=== PATIENT | female | born 1985 | race Caucasian/White ===

== ENCOUNTER 2020-08-07 17:40 | Emergency (ER) | payer OTHER, SELFPAY ==
[2020-08-07 17:43] VITALS: BP 180/105; PULSE 96; RESP 18; TEMP 36.8; O2SAT 100
[2020-08-07 17:55] LABS: Basophils Percent Auto 0.4 % (0.2-1.2); Eosinophils Percent Auto 0.2 % (0-4.4); Hematocrit 39.2 % (37.0-47.0); Immature Granulocyte Absolute 0.01 K/mm3 (0.00-0.031); Immature Granulocyte Percent A 0.2 % (0-0.5); Lymphocytes Absolute Auto 1.95 K/mm3 (0.9-3.2); Lymphocytes Percent Auto 34.2 % (18.3-44.2); Mean Corpuscular HGB Conc 33.2 g/dl (32-36); Mean Corpuscular Hemoglobin 28.6 pg (26-34); Mean Corpuscular Volume 86.2 fl (80-100); Mean Platelet Volume 9.9 fl (7.4-10.4); Monocytes Absolute Auto 0.4 K/mm3 (0.1-0.6); Monocytes Percent Auto 7.2 % (2.6-8.5); Neutrophils Absolute Auto 3.3 K/mm3 (1.3-6.7); Neutrophils Percent Auto 57.8 % (45.5-73.1); Platelet Count Result 216 k/mm3 (150-375); Red Blood Count 4.55 M/mm3 (4.2-5.4); Red Cell Distribution Width 12.8 % (11.5-14.5); White Blood Count 5.7 K/mm3 (4.5-10.0)
[2020-08-07 18:04] LABS: Alanine Aminotransferase 24 U/L (4-35); Albumin Level 4.1 g/dL (3.5-5.1); Alkaline Phosphatase 63 U/L (38-126); Anion Gap 6 mmol/L (8-16); Aspartate Amino Transferase 26 U/L (14-36); Bilirubin,Total 0.3 mg/dL (0.2-1.3); Blood Urea Nitrogen 11 mg/dL (7-17); Calcium 9.2 mg/dL (8.4-10.2); Carbon Dioxide 26 mmol/L (22-30); Chloride 104 mmol/L (98-107); Estimated CRCL calculation 60 ml/min; Estimated Glomerular Filt Rate 52; Glucose 102 mg/dL (65-105); Lipase 89 U/L (23-300); Potassium 3.8 mmol/L (3.4-5.0); Sodium 136 mmol/L (137-145)
[2020-08-07 18:06] LABS: Add Urine Microscopic? NO; Appearance Urine Clear (Clear); Bilirubin Urine Negative (Negative); Blood Urine Negative (Negative); Color Urine Yellow (Yellow); Glucose Urine UA Negative (Negative); Ketones Urine Negative (Negative); Leukocyte Esterase Ur Negative LEU/UL (Negative); Nitrate Urine Negative (Negative); Protein Urine Negative (Negative); Specific Grav Ur 1.013 (1.001-1.035); Urobilinogen Urine Negative mg/dL (<2.0)
[2020-08-07] MEDS: SODIUM CHLORIDE 0.9% IV 1,000 ML 999 ML (18:34)
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
[2020-08-07] MEDS: ONDANSETRON INJ 4 MG/2 ML VIAL IV PUSH (18:40)
[2020-08-07 18:59] LABS: Lipase 87 U/L (23-300)
[2020-08-07 20:22] VITALS: BP 148/78; PULSE 78; RESP 22; O2SAT 99
== END 2020-08-07 20:23 | disposition home or self-care (01) ==
PROVIDERS: Emergency Medicine; Emergency Provider Nurse Practitioner; PCP Family Medicine
DX: S13.4XXA Sprain of ligaments of cervical spine, initial encounter (principal); V49.50XA Passenger injured in collision with unspecified motor vehicles in traffic accident, initial encounter
CPT/HCPCS: 36415; 80053; 81003; 81025; 83690; 85025; 96361; 96374; 99284; J2405; J7030

== ENCOUNTER 2020-12-17 15:08 | Emergency (ER) | payer OTHER, SELFPAY ==
--- NOTE | ~2020-12-17 | CT_ITS ---
EXAMINATION: CT abdomen pelvis wo con DATE: 12/17/2020 17:47 INDICATION: Nausea, vomiting, and diarrhea TECHNIQUE: Computed tomography (CT) of the abdomen and pelvic was performed without intravenous contr ast. The dose-length product (DLP) was 914.22 mGy-cm. Automated exposure control and iterative recons truction technique were employed. COMPARISON: None FINDINGS: Minimal dependent atelectasis is present in the lung bases. The heart size is normal. There is a small sliding hiatal hernia. Changes of gastric sleeve surgery are noted. The gallbladder is mane rgically absent. The liver, spleen, pancreas, and adrenal glands are normal. There is a 1 mm nonobstr ucting stone of the right kidney. The left kidney is unremarkable. No pathologically enlarged abdomin al or pelvic lymph nodes are identified. There is no free intraperitoneal gas or evidence of bowel ob struction. The appendix is normal. A trace amount of free fluid in the pelvis is likely physiologic. IMPRESSION: 1. No CT correlate for the patient's symptoms. Reviewed, dictated and finalized at location A.
[2020-12-17 15:12] VITALS: BP 154/117; PULSE 100; RESP 18; TEMP 36.8; O2SAT 100
--- NOTE | 2020-12-17 15:23 | ED.NAVMDI ---
HPI - Nausea/Vomiting/Diarrhea General Chief complaint: Nausea/Vomiting/Diarrhea Stated complaint: nausea/vomiting Time Seen by Provider: 12/17/20 15:10 Source: RN notes reviewed History of Present Illness HPI Narrative: Patient presents emergency room from home for nausea vomiting diarrhea. Patient states the symptoms began 2 days ago she states numerous episodes of nausea vomiting as well as diarrhea notes abdominal pain in the upper abdomen bilaterally states has been able to keep anything down since yesterday states she did have a fever up to 101 ?F yesterday and she denies any chest pain shortness of breath coughing or any other symptoms patient states she is followed by nephrology secondary to acute renal failure she suffered from allergic reaction [address] Tenorio states baseline creatinine is around 1.4 Related Data Home Medications Medication Instructions Recorded Confirmed ipratropium-albuterol ml INHALATION 08/07/20 omeprazole 08/07/20 oxycodone 08/07/20 trazodone 08/07/20 Allergies Allergy/AdvReac Type Severity Reaction Status Date / Time naproxen [From Aleve] Allergy Other Verified 08/07/20 17:46 NSAIDS (Non-Steroidal Allergy Other Verified 08/07/20 17:46 Anti-Inflamma PEACHES Allergy Mild HIVES Uncoded 09/12/05 13:20 Review of Systems Review of Systems: Gen.: Reports fever yesterday ENT: Denies congestion Respiratory: Denies shortness of breath or cough CV: Denies chest pain or palpitations GI: See HPI denies burning, urgency, frequency or hematuria Musculoskeletal: Denies back pain or muscle pain Neuro: Denies numbness, tingling, weakness or focal weakness Skin: Denies rash Except as documented, all other systems reviewed and negative PENDING SALE TO [facility] Past Medical History Medical History (Updated 12/17/20 @ 19:01 by Dewey Oden DO) Chronic renal insufficiency Family History Family History Grandparent Hypertension Cerebrovascular accident Father Family history of diabetes mellitus in first degree relative Other Family history of coronary artery disease Family history of lung cancer Social History Social History Smoking status: Never smoker Alcohol intake: never Substance use: never Gender identity (if verbalized by the patient): Female Exam Narrative: APPEARANCE: No acute distress, nontoxic, resting in bed EYES: EOMI HEENT: Normocephalic, atraumatic, OMM RESPIRATORY: No respiratory distress Clear to auscultation bilaterally with no rhonchi wheezing or rales. CARDIOVASCULAR: Regular rate and rhythm without murmurs rubs or gallops. ABDOMINAL: Soft, n nondistended tender palpation epigastric, right upper quadrant left upper quadrant no tenderness right lower quadrant left lower quadrant no rebound or guarding MUSCULOSKELETAl: Moves all extremities. No clubbing, cyanosis or edema. NEURO: Awake and alert. Following commands, speech normal, no focal deficits SKIN:: Warm, dry. No rashes lesions or abrasions PSYCHIATRIC: Normal affect/mood, Course Course Emergency Course: Patient states that they are feeling much better at this time. States abdominal pain has improved. Repeat abdominal exam shows the patient's abdomen to be soft with no surgical abdomen present. Discussed with patient results of workup and diagnosis. Discussed need for follow-up with primary care physician, reasons to return to the emergency department in proper use of medication. Patient understands and agrees to current treatment plan Vital Signs Vital signs: Vital Signs Temperature 98.2 F 12/17/20 15:12 Pulse Rate 100 12/17/20 15:12 Respiratory Rate 18 12/17/20 15:12 Blood Pressure 154/117 H 12/17/20 15:12 Pulse Oximetry 100 12/17/20 15:12 Temperature 98.2 F 12/17/20 15:12 Pulse Rate 100 12/17/20 15:12 Respiratory Rate 18 12/17/20 15:12 Blood Pressure
[2020-12-17] MEDS: SODIUM CHLORIDE 0.9% IV 1,000 ML 999 ML IV CONT ×2 (16:37→18:39)
[2020-12-17] MEDS: ONDANSETRON INJ 4 MG/2 ML VIAL IV PUSH (16:37)
[2020-12-17 16:43] LABS: Eosinophils Absolute Auto 0.1 K/mm3 (0-0.3); Eosinophils Percent Auto 3.7 % (0-4.4); Hematocrit 40.6 % (37.0-47.0); Hemoglobin 13.9 g/dL (12.0-15.0); Immature Granulocyte Absolute 0.01 K/mm3 (0.00-0.031); Immature Granulocyte Percent A 0.3 % (0-0.5); Lymphocytes Absolute Auto 0.95 K/mm3 (0.9-3.2); Lymphocytes Percent Auto 29.2 % (18.3-44.2); Mean Corpuscular HGB Conc 34.2 g/dl (32-36); Mean Corpuscular Hemoglobin 28.9 pg (26-34); Mean Corpuscular Volume 84.4 fl (80-100); Mean Platelet Volume 9.9 fl (7.4-10.4); Monocytes Absolute Auto 0.4 K/mm3 (0.1-0.6); Neutrophils Absolute Auto 1.8 K/mm3 (1.3-6.7); Neutrophils Percent Auto 54.8 % (45.5-73.1); Platelet Count Result 214 k/mm3 (150-375); Red Blood Count 4.81 M/mm3 (4.2-5.4); White Blood Count 3.3 K/mm3 (4.5-10.0)
[2020-12-17 16:45] VITALS: BP 135/92; PULSE 86; RESP 18; TEMP 37.2; O2SAT 100
[2020-12-17 16:54] LABS: Alanine Aminotransferase 42 U/L (4-35); Albumin Level 4.3 g/dL (3.5-5.1); Alkaline Phosphatase 71 U/L (38-126); Anion Gap 9 mmol/L (8-16); Aspartate Amino Transferase 44 U/L (14-36); Bilirubin,Total 0.5 mg/dL (0.2-1.3); Blood Urea Nitrogen 12 mg/dL (7-17); Carbon Dioxide 26 mmol/L (22-30); Chloride 102 mmol/L (98-107); Estimated CRCL calculation 71 ml/min; Estimated Glomerular Filt Rate > 60; Glucose 92 mg/dL (65-110); Lipase 78 U/L (23-300); Potassium 3.4 mmol/L (3.4-5.0); Sodium 137 mmol/L (137-145)
[2020-12-17 17:45] VITALS: BP 142/94; PULSE 88; RESP 18; O2SAT 99
[2020-12-17 18:45] VITALS: BP 136/94; PULSE 82; RESP 16; O2SAT 100
[2020-12-17 18:47] LABS: Add Urine Microscopic? NO; Appearance Urine Clear (Clear); Bilirubin Urine Negative (Negative); Blood Urine Negative (Negative); Color Urine Yellow (Yellow); Glucose Urine UA Negative (Negative); Ketones Urine Negative (Negative); Leukocyte Esterase Ur Negative LEU/UL (Negative); Nitrate Urine Negative (Negative); Protein Urine Negative (Negative); Specific Grav Ur 1.014 (1.001-1.035); Urobilinogen Urine Negative mg/dL (<2.0)
[2020-12-17 19:45] VITALS: BP 136/94; PULSE 82; RESP 18; O2SAT 100
== END 2020-12-17 19:45 | disposition home or self-care (01) ==
PROVIDERS: Emergency Provider Emergency Medicine; PCP Family Medicine
DX: R11.2 Nausea with vomiting, unspecified (principal); R10.9 Unspecified abdominal pain; N18.9 Chronic kidney disease, unspecified
CPT/HCPCS: 36415; 74176; 80053; 81003; 83690; 85025; 96361; 96374; 96375; 99284; J0131; J2405; J7030

== ENCOUNTER 2020-12-19 16:00 | Emergency (ER) | payer OTHER, SELFPAY ==
--- NOTE | ~2020-12-19 | XR_ITS ---
EXAMINATION: XR ankle RT min 3V INDICATION: Right ankle pain TECHNIQUE: Four views of the right ankle are obtained. COMPARISON: 08/21/2006 FINDINGS: Bone alignment is normal. There is no fracture. The ankle mortise is intact. There is mild soft tissue swelling. IMPRESSION: 1. Ankle soft tissue swelling without acute osseous abnormality. Reviewed, dictated and finalized at location A.
[2020-12-19 16:10] VITALS: BP 145/104; PULSE 91; RESP 20; TEMP 36.8; O2SAT 100
--- NOTE | 2020-12-19 16:21 | PC.NURSE ---
PT DECLINED ICE FOR COMFORT AND WHEELCHAIR TO RADIOLOGY
--- NOTE | 2020-12-19 16:55 | ED.LOWEXIN ---
HPI - Extremity Injury (Lower) General Chief Complaint: Extremity Injury, Lower Stated Complaint: Right ankle injury Time Seen by Provider: 12/19/20 16:42 Source: patient and RN notes reviewed Mode of arrival: ambulatory Limitations: no limitations History of Present Illness HPI Narrative: Patient presents today complaining of a right ankle injury. She was sitting on her lower leg, it fell asleep, she got up off the couch to go to the restroom and rolled her ankle yesterday. She was not able to walk on it yesterday, but has been able to bear weight today. She currently rates her ankle pain 4/10 and has tried no medication for symptoms prior to arrival. She has been elevating. 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 MD complaint: ankle injury Related Data Home Medications Medication Instructions Recorded Confirmed omeprazole 20 mg PO DAILY 08/07/20 trazodone 100 mg PO DAILY 08/07/20 albuterol sulfate [Ventolin HFA] See Rx Instructions .ROUTE .COMPLEX 12/19/20 12/19/20 ipratropium-albuterol See Rx Instructions .ROUTE .COMPLEX 12/19/20 12/19/20 ondansetron HCl 4 mg PO Q4-8H PRN 12/19/20 12/19/20 Allergies Allergy/AdvReac Type Severity Reaction Status Date / Time naproxen [From Aleve] Allergy Other Verified 12/19/20 16:28 NSAIDS (Non-Steroidal Allergy Other Verified 12/19/20 16:28 Anti-Inflamma PEACHES Allergy Mild HIVES Uncoded 09/12/05 13:20 Review of Systems Review of Systems: CONSTITUTIONAL: Denies body aches, fever, chills, or sweats. EYES: Denies visual changes, redness, or discharge. ENT: Denies rhinorrhea, congestion, sore throat, or otalgia. CARDIOVASCULAR: Denies chest pain, palpitations, or edema. RESPIRATORY: Denies cough or dyspnea. GASTROINTESTINAL: Denies abdominal pain, nausea, vomiting, or diarrhea. GENITOURINARY: Denies dysuria or hematuria. SKIN: Denies rash, itching, or wounds. MUSCULOSKELETAL: Denies back pain, or myalgia. + Right ankle injury NEUROLOGIC: Denies headache, numbness, tingling, or weakness. PSYCH: Denies depression or anxiety. [facility] Past Medical History Medical History Chronic renal insufficiency Family History Family History Grandparent Hypertension Cerebrovascular accident Father Family history of diabetes mellitus in first degree relative Other Family history of coronary artery disease Family history of lung cancer Social History Social History Smoking status: Never smoker Alcohol intake: never Substance use: never Gender identity (if verbalized by the patient): Female Comments At time of signature, I have reviewed and agree with nursing past medical, surgical, social and family history unless otherwise noted. Please see nursing chart for further information. There is no relevant family history pertinent to the presenting complaint Exam Narrative: GENERAL: Well-appearing, well-nourished, and in no acute distress. HEAD: Normocephalic, atraumatic. EYES: EOMI. No redness or drainage. Conjunctivae normal. ENT: Mucous membranes pink and moist. NECK: Normal AROM. CHEST: No respiratory distress. EXTREMITIES: Right ankle: Ecchymosis, mild to moderate edema to the lateral malleolus with tenderness to palpation. Distal sensation intact capillary refill normal. Pedal pulse normal. Full range of motion of the ankle with increased pain. SKIN: Warm, dry, no rash. Capillary refill normal. Normal skin turgor. NEURO: No focal deficits. Alert and oriented x3. Gait steady. PSYCH: Normal affect. No signs of depression or anxiety. Course Vital Signs Vital signs: Vital Signs Temperature 98.2 F 12/19/20 16:10 Pulse Rate 91 12/19/20 16:10 Respiratory Rate 20 12/19/20 16:10 Blood Pressure 145/104 H 12/19/20 16:10 Pulse Oximetry 100 12/19/20 16:10
[2020-12-19 16:59] VITALS: BP 145/104; PULSE 91; RESP 20; TEMP 36.8; O2SAT 100
== END 2020-12-19 17:05 | disposition home or self-care (01) ==
PROVIDERS: Emergency Provider Nurse Practitioner; PCP Family Medicine
DX: S93.401A Sprain of unspecified ligament of right ankle, initial encounter (principal); X50.9XXA Other and unspecified overexertion or strenuous movements or postures, initial encounter; I12.9 Hypertensive chronic kidney disease with stage 1 through stage 4 chronic kidney disease, or unspecified chronic kidney disease; N18.9 Chronic kidney disease, unspecified; E78.00 Pure hypercholesterolemia, unspecified; J45.909 Unspecified asthma, uncomplicated; K21.9 Gastro-esophageal reflux disease without esophagitis; D64.9 Anemia, unspecified; E28.2 Polycystic ovarian syndrome
CPT/HCPCS: 73610; 99213; G0463

== ENCOUNTER 2023-03-11 10:25 | Emergency (ER) | payer BC, SELFPAY ==
--- NOTE | ~2023-03-11 | XR_ITS ---
XR ankle LT min 3V DATE: 03/11/2023 13:07 INDICATION: Left ankle pain, no injury. TECHNIQUE: 4 views COMPARISON: None FINDINGS: No fracture or dislocation of the ankle or disruption of the ankle mortise. No periosteal r eaction or bone destruction. IMPRESSION: Negative Reviewed, dictated and finalized at location A. ORATE RECYCLING MANAGER IMPRESSION: Negative
--- NOTE | ~2023-03-11 | XR_ITS ---
XR toe 1st LT min 2V DATE: 03/11/2023 11:32 INDICATION: Discolored toe upon waking. No known injury. TECHNIQUE: 3 views COMPARISON: None FINDINGS: Hallux valgus and bunion deformity. No fracture, dislocation, periosteal reaction or bone destruction is evident. Joint spaces are preser jordan. No erosive change. IMPRESSION: Hallux valgus and bunion deformity Reviewed, dictated and finalized at location A. [employer]ONICS DETAIL DRAFTSPERSON
[2023-03-11 10:27] VITALS: BP 160/100; PULSE 85; RESP 16; TEMP 36.6; O2SAT 100
[2023-03-11 11:37] LABS: Basophils Percent Auto 0.6 % (0.2-1.2); Eosinophils Absolute Auto 0.3 K/mm3 (0-0.3); Eosinophils Percent Auto 6.9 % (0-4.4); Hemoglobin 13.2 g/dL (12.0-15.0); Immature Granulocyte Absolute 0.01 K/mm3 (0.00-0.031); Immature Granulocyte Percent A 0.2 % (0-0.5); Lymphocytes Absolute Auto 1.64 K/mm3 (0.9-3.2); Lymphocytes Percent Auto 35.4 % (18.3-44.2); Mean Corpuscular HGB Conc 32.2 g/dl (32-36); Mean Corpuscular Hemoglobin 27.6 pg (26-34); Mean Corpuscular Volume 85.6 fl (80-100); Monocytes Absolute Auto 0.3 K/mm3 (0.1-0.6); Monocytes Percent Auto 7.3 % (2.6-8.5); Neutrophils Absolute Auto 2.3 K/mm3 (1.3-6.7); Neutrophils Percent Auto 49.6 % (45.5-73.1); Platelet Count Result 276 k/mm3 (150-375); Red Blood Count 4.79 M/mm3 (4.2-5.4); Red Cell Distribution Width 12.9 % (11.5-14.5); White Blood Count 4.6 K/mm3 (4.5-10.0)
[2023-03-11 11:40] LABS: INR 0.9; Prothrombin Time 12.6 Seconds (11.1-14.7)
[2023-03-11 11:41] LABS: Alanine Aminotransferase 23 U/L (6-35); Albumin Level 3.8 g/dL (3.5-5.1); Alkaline Phosphatase 64 U/L (38-126); Anion Gap 6 mmol/L (8-16); Aspartate Amino Transferase 20 U/L (14-36); Bilirubin,Total 0.5 mg/dL (0.2-1.3); Blood Urea Nitrogen 11 mg/dL (7-17); Calcium 8.9 mg/dL (8.4-10.2); Carbon Dioxide 26 mmol/L (22-30); Chloride 106 mmol/L (98-107); Estimated CRCL calculation 68 ml/min; Estimated Glomerular Filt Rate > 60; Glucose 88 mg/dL (65-110); Partial Thromboplastin Time 30.3 SECONDS (22.3-36.8); Potassium 3.8 mmol/L (3.4-5.0); Sodium 138 mmol/L (137-145)
--- NOTE | 2023-03-11 12:18 | ED.GENADULT ---
HPI - General Adult General Chief complaint: Extremity Problem,Nontraumatic Stated complaint: discolored toe, ankle pain Time Seen by Provider: 03/11/23 12:17 Source: patient and family Mode of arrival: ambulatory Limitations: no limitations History of Present Illness HPI narrative: 37 years old white female came to the emergency room by private car complaining nontraumatic left ankle pain it started 1 week ago. Also over the last 2 days patient noticed red bluish discoloration, spots at the left big toe. She denies any trauma, fever, chills, nausea, vomiting. History of hyperlipidemia. And flatfoot Related Data Home Medications Medication Instructions Recorded Confirmed albuterol sulfate 90 mcg/actuation 2 puff inhalation Q4-6H PRN 12/19/20 08/24/22 aerosol inhaler (Ventolin HFA) Shortness Of Breath Or Wheezing montelukast 10 mg tablet 10 mg PO QPM 08/24/22 08/24/22 sertraline 50 mg tablet 50 mg PO DAILY 08/24/22 08/24/22 Allergies Allergy/AdvReac Type Severity Reaction Status Date / Time ibuprofen Allergy Severe Other Verified 08/24/22 18:34 naproxen [From Aleve] Allergy Severe Other Verified 08/24/22 18:33 NSAIDS (Non-Steroidal Allergy Severe Other Verified 08/24/22 18:33 Anti-Inflamma peach Allergy Mild Hives Verified 08/24/22 18:33 Review of Systems Review of Systems: All systems reviewed & are unremarkable except as noted in HPI and below PMFSH Past Medical History Medical History Chronic renal insufficiency Family History Family History Grandparent Hypertension Cerebrovascular accident Father Family history of diabetes mellitus in first degree relative Other Family history of coronary artery disease Family history of lung cancer Social History Social History Smoking status: Never smoker Alcohol intake: never Substance use: never Living arrangements: with family Gender identity (if verbalized by the patient): Female Exam Narrative: General appearance: Well-developed, well-nourished Skin: Left big toe examination showed spots of reddish bluish discoloration at the plantar side and the medial side. Slightly tender to touch. No erythema, no warmth, no swelling, no deformity Head: Normocephalic, nontraumatic Eyes: Clear conjunctiva ENT: Oropharynx normal, ears normal, nose normal Neck: Supple, nontender Chest and respiratory: Airway patent, no respiratory distress, no accessory muscle use Heart: Regular rate/rhythm Abdomen: Soft, nontender, no organomegaly, quiet bowel sounds Vascular: Normal peripheral pulses, normal capillary refill. Musculoskeletal: Left ankle showed no tenderness, no deformity, no bruises, no swelling. Good range of motion Neurologic: Alert and oriented ?3, DREDGE CAPTAIN is normal as tested, no gross motor deficit Course Consultations Consultation #1: Dr. Jimenez/vascular surgeon at [facility], requested to transfer the patient immediately to the ED Date: 03/11/23 Time: 15:43 Vital Signs Vital signs: Vital Signs Temperature 36.6 C 03/11/23 10:27 Pulse Rate 85 03/11/23 10:27 Respiratory Rate 16 03/11/23 10:27 Blood Pressure 160/100 H 03/11/23 10:27 Pulse Oximetry 100 03/11/23 10:27 Oxygen Delivery Room Air 03/11/23 10:27 Temperature 36.6 C 03/11/23 10:27 Pulse Rate 85 03/11/23 10:27 Respiratory Rate 16 03/11/23 10:27 Blood Pressure 160/100 H 03/11/23 10:27 Pulse Oximetry 100 03/11/23 10:27 Oxygen Delivery Room Air 03/11/23 10:27 Medical Decision Making MDM
[2023-03-11 13:29] LABS: CRP < 0.5 mg/dL (<1.0)
[2023-03-11 14:44] LABS: Erythrocyte Sedimentation Rate 12 mm/hr (0-20)
[2023-03-11 15:25] VITALS: BP 148/99; PULSE 81; RESP 17; O2SAT 100
[2023-03-11] MEDS: CLOPIDOGREL BISULFATE 300 MG TABLET PO (16:10)
[2023-03-11 17:17] VITALS: BP 154/108; PULSE 89; RESP 19; O2SAT 100
--- NOTE | 2023-03-11 17:26 | PC.NURSE ---
called [phone] and spoke to AMRSHAL Peralta to give nurse to nurse report. all questions answered. pt chose to go to [facility] via private car but s transportation was offered.
== END 2023-03-11 17:27 | disposition short-term general hospital (02) ==
PROVIDERS: General Practice; Emergency Provider Emergency Medicine; PCP Nurse Practitioner Family
DX: I75.022 Atheroembolism of left lower extremity (principal); N18.9 Chronic kidney disease, unspecified
CPT/HCPCS: 36415; 73610; 73660; 80053; 85025; 85610; 85652; 85730; 86140; 99283; A9270

== ENCOUNTER 2025-02-22 19:58 | Observation (INO) | payer OTHER, SELFPAY ==
--- NOTE | ~2025-02-22 | CT_ITS ---
EXAMINATION: CTA chest abdomen pelvis DATE: 02/22/2025 23:51 INDICATION: Left abdominal pain. Back pain. TECHNIQUE: Computed tomographic angiography (CTA) of the chest, abdomen, and pelvis was performed with 100 mL Omnipaque-350 intravenous contrast. Automated exposure control and iterative reconstruction technique were employed. The dose- length product was 1039.70 mGy-cm. Maximum intensity projection 3D- reconstructions of the aorta and other arteries were constructed by the technologist on a separate workstation. COMPARISON: CT abdomen and pelvis 12/17/2020 FINDINGS: CHEST CTA: The lungs demonstrate minimal atelectasis. No pleural effusion. The heart size is normal. No pericardial effusion. There is no pulmonary embolus. Thoracic aorta is normal. There are changes of gastric sleeve procedure. There is a small sliding hiatal hernia. There is mild thoracic spondylosis. ABDOMEN AND PELVIS CTA: The liver, spleen, pancreas, and adrenal glands are normal. There are changes of cholecystectomy. There is mild atrophy of the kidneys. There is a 3 mm stone in right kidney. There is a ring-shaped device in the vagina. The appendix is normal. There are no dilated loops of bowel. There is no significant stenosis of celiac axis, superior mesenteric artery, the renal arteries, or inferior mesenteric artery. There are no pathologically enlarged lymph nodes. There is no ascites. There is mild lumbar spondylosis. IMPRESSION: 1. No significant arterial occlusive disease. 2. Small sliding hiatal hernia. Reviewed, dictated and finalized at location E. [facility]
[2025-02-22 20:00] VITALS: BP 155/95; PULSE 112; RESP 15; TEMP 36.6; O2SAT 99
[2025-02-22 20:07] VITALS: BP 141/96; PULSE 108; RESP 16; O2SAT 98
[2025-02-22 20:48] LABS: BEDSIDEPREGUCG Negative (Negative)
--- OUTSIDE RECORDS SUMMARY | 2025-02-22 20:50 | XMS_ITS | Encounter Summary ---
Author Organization [facility] Address [address] [place] [address] Care Team Providers Care Vacuum Evaporation Operator Name Role Phone Miguel Pagan MD Primary Care Prov ider Blanca Martini RN Unavailable Unavailable Encounter Details Date Type Department Care Team (Late st Contact Info) Description 10/04/2024 [employer] Message Enc [facility] Family Medicine - [address], [address] [place] [address] [phone] Miguel Pagan MD [address] [place] [address], [address] [address] Medication Social History Tobacco Use Types Packs/Day Years Used Date Smoking Tobacco: Never Passive Smoke Exposure: Past Smokeless Tobacco: Never Alcohol Use Standard Drinks/Week Comments Not Currently 0 (1 standard drink = 0.6 oz pur e alcohol) socially AUDIT-C Answer Date Recorded Frequency of Alcohol Consumption Never 03/30/2018 Average Number of Drinks Not on file 019 Frequency of Binge Drinking Not on file 03/20 PHQ-2 Answer Date Recorded Patient Health Questionnaire-2 Score 0 08/29/2024 Education Answer Date Recorded What is the highest level of school you have completed or the highest degree you have received? 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 Answer Date of Assessment Author Status No 08/05/2018 11:59 AM CDT Acti ve * Do you have serious difficulty walking or climbing stairs? Answer Date of Assessment Author Status No 08/05/2018 11:59 AM CDT Rommel Ferreira LPN Active * Do you have difficulty dressing or bathing? Answer Date of Assessment Author Status No 08/05/2018 11:59 AM CDT Rommel Ferreira LPN Active * Because of a physical, mental, or emotional condition, do you have difficulty doing errands alone such as visiting a doctor's office or shopping? Answer Date of Assessment Author Status No 08/05/2018 11:59 AM CDT Rommel Ferreira LPN Active documented as of this encounter Mental Status * Because of a physical, mental, or emotional condition, do you have serious difficulty concentrating, remembering, or making decisions? Answer Entry Date Author Status No 08/05/2018 11:59 AM CDRommel Mooney LPN Active documented in this encounter Plan of Treatment Upcoming Encounters Date Type Department Care Team (Late st Contact Info) Description 04/02/2025 12:00 PM HOME AGENT Office Visit [facility] Family Medicine - [place] [id number] [facility], [address] [place] [address] Bartolo Miguel MARIE MD [address] [facility], [address] [id number] documented as of this encounter Visit Diagnoses Diagnosis Class 2 obesity due to excess calories with body mass index (BMI) of 38.0 to 38.9 in adult, unspecified whether serious comorbidity present- Primary documented in this encounter Additional Health Concerns Assessment Noted Time PHQ-9 Depression Total Score: 10 025 9:51 AM HOME AGENT documented as of this encounter Care Teams Vacuum Evaporation Operator Relationship Specialty Start Date End Date Bartolo VII, Miguel Mayer MD [address] [place], [place] [id number] PCP - General FAMILY PRACTICE 12/28/23 Blanca Martini, hot bread baker (Ambulatory) CARE MANAGEMENT 04/05/24 documented as of this encounter
--- OUTSIDE RECORDS SUMMARY | 2025-02-22 20:50 | XMS_ITS | Encounter Summary ---
Author Organization [facility] Address [address] [place] [address] Care Team Providers Care Flute Teacher Name Role Phone Miguel Pagan MD Primary Care Prov ider Blanca Martini RN Unavailable Unavailable Encounter Details Date Type Department Care Team (Late st Contact Info) Description 07/22/2024 [employer] Message Enc [facility] Family Medicine [address], [address] [place] [address] [phone] Miguel Pagan MD [address] [place] [address], [address] [address] Refill Social History Tobacco Use Types Packs/Day Years [...] Answer Date Recorded Patient Health Questionnaire-2 Score 2 04/01/2024 Education Answer Date Recorded What is the highest level of school you have completed or the highest degree you have received? Bachelor's degree (e.g., BA, AB, BS) 03/30/2018 Comments No Sex and Gender Information Value Date Recorded Sex Assigned at Female 04/01/2018 8:45 PM [employer] MAINFRAME SYSTEMS PROGRAMMER Legal Sex Female 8:43 PM CDT Gender Identity Female 04/01/2018 8:45 PM [employer] MAINFRAME SYSTEMS PROGRAMMER Sexual Orientation Straight 03/30/2018 9: 24 AM [employer] MAINFRAME SYSTEMS PROGRAMMER Occupation Industry Job Start Date Job End [...] Author Status No 08/05/2018 11:59 AM CDT Rmomel Ferreira LPN Active * Do you have [...] st Contact Info) Description 04/02/2025 12:00 PM [employer] MAINFRAME SYSTEMS PROGRAMMER Office Visit [facility] Family Medicine - [place] [address] [facility], [address] [place] [phone] Bartolo Miguel MARIE MD [address] [facility] [address] [place], [place] [id number] documented as of this encounter Visit Diagnoses Not on filedocumented in this encounter Additional Health Concerns Assessment Noted Time PHQ-9 Depression Total Score: 10 025 9:51 AM [employer] MAINFRAME SYSTEMS PROGRAMMER documented as of this encounter Care Teams Flute Teacher Relationship Specialty Start Date End Date Bartolo VII, Miguel Mayer MD [address] [place] [id number] PCP - General FAMILY PRACTICE 12/28/23 Blanca Martini, survey technologist (Ambulatory) CARE MANAGEMENT 04/05/24 documented as of this encounter
--- OUTSIDE RECORDS SUMMARY | 2025-02-22 20:50 | XMS_ITS | Encounter Summary ---
Author Organization [facility] Address [facility] [place] [address] Care Team Providers Care Environmental Sustainability Manager Name Role Phone Betty Avery CHAIN SAW MECHANIC Primary Care Provider Alis Azevedo MD Primary Care Provider [phone] Non-Staff, Provider Primary Care Provider Miguel Little MD Primary Care Prov ider Blanca Martini RN Unavailable Unavailable Encounter Details Date Type Department Care Team (Late st Contact Info) Description 06/14/2019 [address] Message Enc [facility] Medical Group Family & Internal Medicine [facility] [address] [place] [address] Otilia [facility] Provider RE:Letter Social History Tobacco Use Types Packs/Day Years Used Date Smoking Tobacco: Never Smokeless Tobacco: Never Alcohol Use Standard Drinks/Week Comments No 0 (1 standard drink = 0.6 oz pur e alcohol) AUDIT-C Answer Date Recorded Frequency of Alcohol Consumption Never 03/30/2018 Average Number of Drinks Not on file 019 Frequency of Binge Drinking Not on file 03/20 PHQ-2 Answer Date Recorded PHQ-2 Score 0 08/02/2018 Education Answer Date Recorded What is the highest level of school you have completed or the highest degree you have received? Bachelor's degree (e.g., BA, AB, BS) 03/30/2018 Comments No Sex and Gender Information Value Date Recorded Sex Assigned at Female 04/01/2018 8:45 PM MEDICATION NURSE Legal Sex Female 8:43 PM CDT Gender Identity Female 04/01/2018 8:45 PM MEDICATION NURSE Sexual Orientation Straight 03/30/2018 9: 24 AM MEDICATION NURSE Occupation Industry Job Start Date Job End [...] st Contact Info) Description 04/02/2025 12:00 PM MEDICATION NURSE Office Visit [facility] Medical Group Family Medicine - [place], [address] [place] [phone] Bartolo VII, Miguel Mayer MD [facility], [address] [address] documented as of this encounter Visit Diagnoses Not on filedocumented in this encounter Additional Health Concerns Infection Onset Date Last Indicated Resolved Time COVID-19 Rule Out 12/30/2021 12/30/202112/3012/30/2021 4:59 PM CDT COVID-19 Rule Out 12/30/2021 12/30/2021 12/30/2021 5:04 PM CDT COVID-19 Rule Out 03/29/2024 03/29/2024 03/29/2024 3:26 PM MEDICATION NURSE documented as of this encounter Care Teams Environmental Sustainability Manager Relationship Specialty Start Date End Date Betty Avery NP PCP - General NURSE PRACTITIONER 03/29/18 04/27/21 [place] [address] [facility] [address] [place] [address] PCP - General FAMILY PRACTICE 05/14/21 09/25/23 Non-Staff, Provider PCP - General UNKNOWN PHYSICIAN SPECIALTY 09/26/23 12/27/23 Miguel Pagan MD [address] [place] [address] PCP - General FAMILY PRACTICE 12/28/23 Blanca Martini RN Care Manager (Ambulatory) CARE MANAGEMENT 04/05/24 documented as of this encounter
--- OUTSIDE RECORDS SUMMARY | 2025-02-22 20:50 | XMS_ITS | Encounter Summary ---
Author Organization [facility] Address [facility] [place] [address] Care Team Providers Care Automatic Seamer Name Role Phone Betty Avery NP Primary Care Provider Alis Azevedo MD Primary Care Provider [phone] Non-Staff, Provider Primary Care Provider Miguel Little MD Primary Care Prov ider Blanca Martini RN Unavailable Unavailable Encounter Details Date Type Department Care Team (Late st Contact Info) Description 06/03/2020 [employer] Message [facility] Patient Accounts [address] [place] [address] [facility] Provider Financial assistance application missing letter Social History Tobacco Use Types Packs/Day Years Used Date Smoking Tobacco: Never Smokeless Tobacco: Never Alcohol Use Standard Drinks/Week Comments Yes 0 (1 standard drink = 0.6 oz pur e alcohol) rare AUDIT-C Answer Date Recorded Frequency of Alcohol Consumption Never 03/30/2018 Average Number of Drinks Not on file 019 Frequency of Binge Drinking Not on file 03/20 PHQ-2 Answer Date Recorded PHQ-2 Score - If the patient scores above 3, please move on to questions 3-9 0 12/13/2019 Education Answer Date Recorded What is the highest level of school you have completed or the highest degree you have received? Bachelor's degree (e.g., BA, AB, BS) 03/30/2018 Comments No Sex and Gender Information Value Date Recorded Sex Assigned at Female 04/01/2018 8:45 PM ASSISTANT PROFESSOR OF BIOCHEMISTRY Legal Sex Female 8:43 PM CDT Gender Identity Female 04/01/2018 8:45 PM ASSISTANT PROFESSOR OF BIOCHEMISTRY Sexual Orientation Straight 03/30/2018 9: 24 AM ASSISTANT PROFESSOR OF BIOCHEMISTRY Occupation Industry Job Start Date Job End [...] Date Author Status No 08/05/2018 11:59 AM Rommel Huggins LPN Active documented in this encounter Plan of Treatment Upcoming Encounters Date Type Department Care Team (Late st Contact Info) Description 04/02/2025 12:00 PM ASSISTANT PROFESSOR OF BIOCHEMISTRY Office Visit [facility] Medical Group Family Medicine - [place] [address] [facility], [address] [place] [phone] Bartolo Miguel MARIE MD [address], [facility] [address] [place], [place] [phone] documented as of this encounter Visit Diagnoses Not on filedocumented in this encounter Additional Health Concerns Infection Onset Date Last Indicated Resolved Time COVID-19 Rule Out 12/30/2021 12/30/2021 12/30/2021 4:59 PM CDT COVID-19 Rule Out 12/30/2021 12/30/2021 12/30/2021 5:04 PM CDT COVID-19 Rule Out 03/29/2024 03/29/2024 03/29/2024 3:26 PM ASSISTANT PROFESSOR OF BIOCHEMISTRY documented as of this encounter Care Teams Automatic Seamer Relationship Specialty Start Date End Date Betty Avery NP PCP - General NURSE PRACTITIONER 03/29/18 04/27/21 [place] [address] [facility] [address] [place] [address] PCP - General FAMILY PRACTICE 05/14/21 09/25/23 Non-Staff, Provider PCP - General UNKNOWN PHYSICIAN SPECIALTY 09/26/23 12/27/23 Miguel Pagan MD [address] [place] [address], [address] [address] PCP - General FAMILY PRACTICE 12/28/23 Blanca Martini polymer materials consultant (Ambulatory) CARE MANAGEMENT 04/05/24 documented as of this encounter
--- OUTSIDE RECORDS SUMMARY | 2025-02-22 20:50 | XMS_ITS | Encounter Summary ---
Author Organization [facility] Address [address] [place] [address] Care Team Providers Care Sales Enablement Consultant Name Role Phone Miguel Pagan MD Primary Care Prov ider Blanca Martini RN Unavailable Unavailable Reason for Visit * Reason Onset Date Comments Question 04/16/2024 Encounter Details Date Type Department Care Team (Late st Contact Info) Description 04/16/2024 [employer] Message Enc [facility] Medical Group Family Medicine - [address], [address] [place] [address] Miguel Pagan MD [address] [place] [address], [address] [address] Light duty letter Social History Tobacco Use Types Packs/Day [...] Sex Assigned at Female 04/01/2018 8:45 PM AUTO REFINISHER Legal Sex Female 8:43 PM CDT Gender Identity Female 04/01/2018 8:45 PM AUTO REFINISHER Sexual Orientation Straight 03/30/2018 9: 24 AM AUTO REFINISHER Occupation Industry Job Start Date Job End [...] Date Author Status No 08/05/2018 11:59 AM CDT Rommel Ferreira LPN Active documented in this encounter Progress Notes * Sanford Ozuna - 04/17/2024 10:57 AM CST Skylar from [facility] Work comp called and needed more specifics on what light duty meant so they can accommodate her. Skylar advised that they need to know what her restrictions are example: can only lift somany pounds. Skylar stated she was unsure of exactly what light duty meant. Fax number# [phone] CB# [phone] REFINISHER * Sanford Ozuna - 04/17/2024 9:51 AM CST Nava called and wanted to know if she could a letter stating she needs to be off. There is no light duty work for her. She advised they keep sending her home and she doesn't want to loose her insurance. She wanted to know if she could be off for 2-3 weeks and then return to see him. CB# [phone] REFINISHER documented in this encounter Plan of Treatment Upcoming Encounters Date Type Department Care Team (Late st Contact Info) Description 04/02/2025 12:00 PM AUTO REFINISHER Office Visit [facility] Medical Group Family Medicine - [address], [address] [place] [phone] Miguel Pagan MD [address] [place] [address] documented as of this encounter Visit Diagnoses Not on filedocumented in this encounter Additional Health Concerns Assessment Noted Time PHQ-9 Depression Total Score: 10 025 9:51 AM AUTO REFINISHER documented as of this encounter Care Teams Sales Enablement Consultant Relationship Specialty Start Date End Date Miguel Pagan MD [address] [place] [address] PCP - General FAMILY PRACTICE 12/28/23 Blanca Martini, group worker (Ambulatory) CARE MANAGEMENT 04/05/24 documented as of this encounter
--- OUTSIDE RECORDS SUMMARY | 2025-02-22 20:50 | XMS_ITS | Encounter Summary ---
Author Organization [facility] Address [facility] [place] [address] Care Team Providers Care Patcher Name Role Phone Miguel Pagan MD Primary Care Prov ider Blanca Martini RN Unavailable Unavailable Encounter Details Date Type Department Care Team (Late st Contact Info) Description 04/05/2024 [employer] Message Enc [facility] [address] [place] [phone] [place], [facility] Provider [facility] Virtual Care Social History Tobacco Use Types Packs/Day Years [...] Sex Assigned at Female 04/01/2018 8:45 PM CHEMICAL PUMPER Legal Sex Female 8:43 PM CDT Gender Identity Female 04/01/2018 8:45 PM CHEMICAL PUMPER Sexual Orientation Straight 03/30/2018 9: 24 AM CHEMICAL PUMPER Occupation Industry Job Start Date Job End [...] Assessment Author Status No 08/05/2018 11:59 AM CDRommel Mooney LPN Active documented as of this encounter Mental Status * Because of a physical, mental, or emotional condition, do you have serious difficulty concentrating, remembering, or making decisions? Answer Entry Date Author Status No 08/05/2018 11:59 AM CDRommel Mooney LPN Active documented in this encounter Plan of Treatment Upcoming Encounters Date Type Department Care Team (Late st Contact Info) Description 04/02/2025 12:00 PM CHEMICAL PUMPER Office Visit [facility] Medical Group [place] [id number] [facility], [address] [place] [phone] Miguel Pagan MD [facility] [phone] documented as of this encounter Visit Diagnoses Not on filedocumented in this encounter Additional Health Concerns Assessment Noted Time PHQ-9 Depression Total Score: 10 025 9:51 AM CHEMICAL PUMPER documented as of this encounter Care Teams Patcher Relationship Specialty Start Date End Date Miguel Pagan MD [facility], [address] [address] PCP - General FAMILY PRACTICE 12/28/23 Blanca Martini, machine mover (Ambulatory) CARE MANAGEMENT 04/05/24 documented as of this encounter
--- OUTSIDE RECORDS SUMMARY | 2025-02-22 20:50 | XMS_ITS | Encounter Summary ---
Author Organization [facility] Address [facility] [place] [address] Care Team Providers Care Utility Worker Film Processing Name Role Phone Miguel Pagan MD Primary Care Prov ider Blanca Martini RN Unavailable Unavailable Encounter Details Date Type Department Care Team (Late st Contact Info) Description 04/15/2024 [place] [employer] Message [employer] [facility] [address] [place] [phone] [employer], [facility] Provider Workers' Compensation Social History Tobacco Use Types Packs/Day Years [...] Sex Assigned at Female 04/01/2018 8:45 PM DIE TESTER Legal Sex Female 8:43 PM CDT Gender Identity Female 04/01/2018 8:45 PM DIE TESTER Sexual Orientation Straight 03/30/2018 9: 24 AM DIE TESTER Occupation Industry Job Start Date Job End [...] 08/05/2018 11:59 AM CDRommel Mooney LPN Active * Because of a physical, [...] st Contact Info) Description 04/02/2025 12:00 PM DIE TESTER Office Visit [facility] [place] [address] [facility], [address] [place] [phone] Miguel Pagan MD [facility] [address] [phone] documented as of this encounter Visit Diagnoses Not on filedocumented in this encounter Additional Health Concerns Assessment Noted Time PHQ-9 Depression Total Score: 10 025 9:51 AM DIE TESTER documented as of this encounter Care Teams Utility Worker Film Processing Relationship Specialty Start Date End Date Miguel Pagan MD [facility], [address] [address] PCP - General FAMILY PRACTICE 12/28/23 Blanca Martini, parts control clerk (Ambulatory) CARE MANAGEMENT 04/05/24 documented as of this encounter
--- OUTSIDE RECORDS SUMMARY | 2025-02-22 20:50 | XMS_ITS | Encounter Summary ---
Author Organization [facility] Address [facility] [place] [address] Care Team Providers Care Mammography Tech Name Role Phone Betty Avery SANDBLASTER STONE Primary Care Provider Alis Azevedo MD Primary Care Provider [phone] Non-Staff, Provider Primary Care Provider Miguel Little MD Primary Care Prov ider Blanca Martini RN Unavailable Unavailable Encounter Details Date Type Department Care Team (Late st Contact Info) Description 06/12/2019 [employer] Message Enc [facility] Medical Group Family & Internal Medicine [facility] [address] [place] [address] Otilia, [facility] Provider Return to work Social History Tobacco Use Types Packs/Day Years [...] Sex Assigned at Female 04/01/2018 8:45 PM BUSINESS REPORTER Legal Sex Female 8:43 PM CDT Gender Identity Female 04/01/2018 8:45 PM BUSINESS REPORTER Sexual Orientation Straight 03/30/2018 9: 24 AM BUSINESS REPORTER Occupation Industry Job Start Date Job End [...] st Contact Info) Description 04/02/2025 12:00 PM BUSINESS REPORTER Office Visit [facility] Medical Group Family Medicine - [place], [address] [place] [phone] Bartolo VII, Miguel Mayer MD [facility], [address] [address] documented as of this encounter Visit Diagnoses Not on filedocumented in this encounter Additional Health Concerns Infection Onset Date Last Indicated Resolved Time COVID-19 Rule Out 12/30/2021 12/30/202112/3012/30/2021 4:59 PM CDT COVID-19 Rule Out 12/30/2021 12/30/2021 12/30/2021 5:04 PM CDT COVID-19 Rule Out 03/29/2024 03/29/2024 03/29/2024 3:26 PM BUSINESS REPORTER documented as of this encounter Care Teams Mammography Tech Relationship Specialty Start Date End Date Betty Avery NP PCP - General NURSE PRACTITIONER 03/29/18 04/27/21 [place] [address] [facility] [address] [place] [address] PCP - General FAMILY PRACTICE 05/14/21 09/25/23 Non-Staff, Provider PCP - General UNKNOWN PHYSICIAN SPECIALTY 09/26/23 12/27/23 Miguel Pagan MD [address] [place] [address] PCP - General FAMILY PRACTICE 12/28/23 Blanca Martini RN Care Manager (Ambulatory) CARE MANAGEMENT 04/05/24 documented as of this encounter
--- OUTSIDE RECORDS SUMMARY | 2025-02-22 20:51 | XMS_ITS | Encounter Summary ---
Author Organization [facility] Address [facility] [place] [address] Care Team Providers Care Car Usher Name Role Phone Alis Ramon MD Primary Care Provider [phone] Non-Staff, Provider Primary Care Provider Yadira Mcfarland VII, Miguel Mayer MD Primary Care Prov ider Blanca Martini RN Unavailable Unavailable Encounter Details Date Type Department Care Team (Late st Contact Info) Description 05/19/2022 [employer] Message Enc [facility] Medical Group Family & Internal Medicine [address] [phone] Otilia [facility] Provider medication refill/appointment Social History Tobacco Use Types Packs/Day Years [...] please move on to questions 3-9 0 05/14/2021 Education Answer Date Recorded What is the highest level of school you have completed or the highest degree you have received? Bachelor's degree (e.g., BA, AB, BS) 03/30/2018 Comments No Sex and Gender Information Value Date Recorded Sex Assigned at Female 04/01/2018 8:45 PM CLIMBING GUIDE Legal Sex Female 8:43 PM CDT Gender Identity Female 04/01/2018 8:45 PM CLIMBING GUIDE Sexual Orientation Straight 03/30/2018 9: 24 AM CLIMBING GUIDE Occupation Industry Job Start Date Job End [...] Ferreira LPN Active documented in this encounter Plan of Treatment Upcoming Encounters Date Type Department Care Team (Late st Contact Info) Description 04/02/2025 12:00 PM CLIMBING GUIDE Office Visit [facility] Medical Group Family Medicine - [place], [address] [place] [phone] Bartolo FRANK, Miguel Mayer MD [facility], [address] [address] documented as of this encounter Visit Diagnoses Not on filedocumented in this encounter Additional Health Concerns Infection Onset Date Last Indicated Resolved Time COVID-19 Rule Out 03/29/2024 03/29/2024 03/29/2024 3:26 PM CLIMBING GUIDE Assessment Noted Time PHQ-9 Depression Total Score: 0 05/14/19 3:33 PM CLIMBING GUIDE documented as of this encounter Care Teams Car Usher Relationship Specialty [place] [address] [facility]. [address] [place] [address] PCP - General FAMILY PRACTICE 05/14/21 09/25/23 Non-Staff, Provider PCP - General UNKNOWN PHYSICIAN SPECIALTY 09/26/23 12/27/23 Miguel Pagan MD [address] [place] [address] PCP - General FAMILY PRACTICE 12/28/23 Blanca Martini RN Care Manager (Ambulatory) CARE MANAGEMENT 04/05/24 documented as of this encounter
--- OUTSIDE RECORDS SUMMARY | 2025-02-22 20:51 | XMS_ITS | Encounter Summary ---
Author Organization [facility] Address [address] [place] [address] Phone Care Team Providers Care Lime Sludge Kiln Operator Name Role Phone Provider, Unknown Primary Care Provider Unavaila ble Encounter Details Date Type Department Care Team (Late st Contact Info) Description 11/18/2022 [facility] [address] [place] [phone] System, Referring [place] In [place] Social History Tobacco Use Types Packs/Day Years Used Date Smoking Tobacco: Never Assessed Comments Unknown Sex and Gender Information Value Date Recorded Sex Assigned at Not on file Legal Sex Female 4:25 PM CDT Gender Identity Not on file Sexual Orientation Not on file COVID-19 Exposure Response Date Recorded In the last 10 days, have yo u been in contact with someone who was confirmed or suspected to have Coronavirus/COVID-19? No / Unsure 11/18/2022 9:01 AM CDT documented as of this encounter Plan of Treatment Upcoming Encounters Date Type Department Care Team (Latest Contact Info) Description 03/06/2025 10:30 AM PLUG WIRER Telemedicine [facility] [address] [place] [phone] Adenike Salcido, INSURANCE SALES MANAGER [address] [place] [address] Discharge Disposition: Discharged to home or Selfcare 03/19/2025 9:00 AM PLUG WIRER Outpatient Clinic Visit [facility] [address] [place] [phone] Adenike Salcido, INSURANCE SALES MANAGER [address] [place] [address] Discharge Disposition: Discharged to home or Selfcare documented as of this encounter Procedures Procedure Name Priority Date/Time Associated Diagnosis Comments QUANTIFERON-TB GOLD PLUS Routine 11/18/2022 9:43 AM CDT MMRV PANEL Routine 11/18/2022 9:43 AM CDT MUMPS IGG Routine 11/18/2022 9:43 AM CDT HERPES ZOSTER (VARICELLA) IGG Routine 11/18/2022 9:43 AM CDT RUBEOLA (MEASLES) IGG Routine 11/18/2022 9:43 AM CDT RUBELLA IMMUNITY IGG Routine 11/18/2022 9:43 AM CDT HEPATITIS B SURFACE ANTIBODY (HBSAB) Routine 11/18/2022 9:43 AM CDT documented in this encounter Results * HERPES ZOSTER (VARICELLA) IGG (11/18/2022 9:43 AM CDT) VARICELLA ZOSTER IGG 4.7 >=1.1 AI 11/18/2022 11:24 PM [facility]T [facility] Blood Venipuncture / Unknown 11/18/2022 9:43 AM CDT 11/18/2022 12:33 PM CDT Narrative [facility] - 11/18/2022 11:24 PM CDT <= 0.8 Negative. No detectable VZV IgG antibody. 0.9 - 1.0 Equivocal >=1.1 Positive Antibody testing was performed by multiplex flow immunoassay on the everyArt platform. us Referring Not In System IMMUNOLOGY ORDERABLES Fi nal Result Performing Organization Address City/[facility]/ZIP Co de Phone Number [facility] [address] [place] [address], [place] * RUBEOLA (MEASLES) IGG (11/18/2022 9:43 AM CDT) MEASLES AB IGG 1.2 >=1.1 AI 11/18/2022 11:24 PM CDT [facility] Blood Venipuncture / Unknown 11/18/2022 9:43 AM CDT 11/18/2022 12:33 PM CDT Narrative [facility] - 11/18/2022 11:24 PM CDT <= 0.8 Negative. No detectable Measles IgG antibody. 0.9 - 1.0 Equivocal >=1.1 Positive Antibody testing was performed by multiplex flow immunoassay on the BioPlex platform. us Referring Not In System IMMUNOLOGY ORDERABLES Fi nal Result Performing Organization Address [facility] Co de Phone Number [facility] [address] [place] [address], [place] * RUBELLA IMMUNITY IGG (11/18/2022 9:43 AM CDT) RUBELLA IMMUNITY Immune Immune, Invalid 11/18/2022 11:24 PM CDT [facility] Blood Venipuncture / Unknown 11/18/2022 9:43 AM CDT 11/18/2022 12:33 PM CDT Narrative [facility] - 11/18/2022 11:24 PM CDT Antibody testing was performed by multiplex flow immunoassay on the BioPlex platform. us Referring Not In System CHEMISTRY ORDERABLES Fin al Result Performing Organization Address City/[facility]/ZIP Co de Phone Number [facility] [address] [place] [address], [place] * MUMPS IGG (11/18/2022 9:43 AM CDT) Mumps Ab IgG 1.6 >=1.1 AI 11/18/2022 11:24 PM CDT [facility] Blood Venipuncture / Unknown 11/18/2022 9:43 AM CDT 11/18/2022 12:33 PM CDT Narrative [facility] - 11/18/2022 11:24 PM CDT <= 0.8 Negative. No detectable Mumps IgG antibody. 0.9 - 1.0 Equivocal >=1.1 Positive Antibody testing was performed by multiplex flow immunoassay on the everyArt platform. us Referring Not In System IMMUNOLOGY ORDERABLES Fi nal Result [facility] [address] [place] [address], * QUANTIFERON-TB GOLD PLUS (11/18/2022 9:43 AM CDT) NIL CONTROL 0.03 <8.01 IU/mL 11/21/2022 11:05 AM CDT [facility] TB ANTIGEN 1 0.02 <0.35 IU/mL 11/21/2022 11:05 AM CDT [facility] TB ANTIGEN 2 0.01 <0.35 IU/mL 11/21/2022 11:05 AM CDT [facility] MITOGEN CONTROL 9.97 >0.49 IU/mL 11/22/19 11:05 AM CDT [facility] INTEPRETATION TB NEGATIVE NEGATIVE, NEGATIVE (TB antigen response less than 25% of internal negative control value) 11/21/2022 11:05 AM CDT [facility] Comment:No immune response t o Mycobacterium tuberculosis antigens was noted. M. tuberculosis infection unlikely. Blood Venipuncture / Unknown 11/18/2022 9:43 AM CDT 11/18/2022 1:28 PM CDT Narrative [facility] - 11/21/2022 11:05 AM CDT A POSITIVE QUANTIFERON-TB GOLD PLUS RESULT SHOULD NOT BE THE SOLE OR DEFINITIVE BASIS FOR DETERMINING INFECTION WITH M.TUBERCULOSIS. Diagnosing or excluding tuberculosis disease, and assessing the probability of LTBI, requires a combination of epidemiological, historical, medical and diagnostic findings (e.g., acid fast bacilli (AFB) smear and culture, chest xray) that should be taken into account when interpreting QFT-Plus results. Furthermore, the magnitude of the measured gamma interferon level cannot be correlated to stage or degree of infection, level of immune responsiveness, or likelihood for progression to active disease. The Nil control adjusts for background (e.g., elevated levels of circulating gamma interferon or presence of heterophile antibodies). The Mitogen control serves as an internal positive control and verifies each specimen tested can produce a gamma interferon response. Low mitogen may occur with insufficient lymphocytes, reduced lymphocyte activity due to improper specimen handling, filling/mixing of the mitogen tube, or inability of the patient's lymphocytes to generate gamma interferon. Infection with other Mycobacteria, including M. kansasii, M. szulgai, and M. marinum, may cause false positive results. A negative QuantiFERON-TB Gold Plus result does not preclude the possibility of M. tuberculosis infection or tuberculosis disease: false negative results can be due to incorrect blood sample collection/ improper handling of the specimen, stage of infection (e.g., specimen obtained prior to the development of cellular immune response), co-morbid conditions which affect immune function, or other individual immunological factors. The minimum number of lymphocytes required for a reliable test has not been established and may also be variable. Diagnostic testing for Mycobacterium tuberculosis using Interferon Gamma Release Assays should follow applicable published guidelines, including when testing in populations such as children, women, and HIV-infected or otherwise immunocompromised individuals. https://www.cdc.gov/tb/publications/guidelines/testing.htm us Referring Not In System IMMUNOLOGY ORDERABLES Fi nal Result [facility] [address] [place] [address], * HEPATITIS B SURFACE ANTIBODY (HBSAB) (11/18/2022 9:43 AM CDT) HEPATITIS B SURFACE ANTIBODY <8.00 mIU/mL [facility] ARCH [id number] 11/18/2022 11:23 PM CDT [facility] Comment:Individual is consid ered not immune to HBV infection. Blood Venipuncture / Unknown 11/18/2022 9:43 AM CDT 11/18/2022 12:33 PM CDT us Referring Not In System CHEMISTRY ORDERABLES Fin al Result [facility] [address] [place] [address], [place] documented in this encounter Visit Diagnoses Not on filedocumented in this encounter Care Teams Lime Sludge Kiln Operator Relationship Specialty Start Date End Date Provider, Unknown UNKNOWN PCP - General 11/18/22 documented as of this encounter
--- OUTSIDE RECORDS SUMMARY | 2025-02-22 20:51 | XMS_ITS | Clinical Summary ---
Author Organization [facility] Address [address] [place] [address] Phone Care Team Providers Care Hot Dip Plater Name Role Phone Provider, Unknown Primary Care Provider Unavaila ble Medications No known medications Encounters Date Type Department Care Team Description 02/12/2025 10:15 AM INTELLECTUAL PROPERTY MANAGER Outpatient Clinic Visit [facility] [address] [place] [address] Adenike Salcido LCSW Generalized anxiety disorder (Primary Dx); Adjustment disorder with depressed mood Discharge Disposition: Discharged to home or Selfcare 02/12/2025 Travel 01/31/2025 8:30 AM INTELLECTUAL PROPERTY MANAGER Telemedicine [facility] [address] [place] [address] Adenike Salcido LCSW Generalized anxiety disorder (Primary Dx); Adjustment disorder with depressed mood Discharge Disposition: Discharged to home or Selfcare 01/30/2025 Travel 01/22/2025 9:15 AM INTELLECTUAL PROPERTY MANAGER Outpatient Clinic Visit [facility] [address] [place] [address] Adenike Salcido LCSW Generalized anxiety disorder (Primary Dx); Adjustment disorder with depressed mood Discharge Disposition: Discharged to home or Selfcare 01/22/2025 Travel from Last 3 Months Social History Tobacco Use Types Packs/Day Years Used Date Smoking Tobacco: Never Passive Smoke Exposure: Never Smokeless Tobacco: Never Tobacco Cessation:Counseling Given: No Alcohol Use Standard Drinks/Week Comments Never 0 (1 standard drink = 0.6 oz pur e alcohol) Sexually Active Control Partners Comments Never Comments Unknown Sex and Gender Information Value Date Recorded Sex Assigned at Not on file Legal Sex Female 4:25 PM CDT Gender Identity Not on file Sexual Orientation Not on file Plan of Treatment Upcoming Encounters Date Type Department Care Team (Latest Contact Info) Description 03/06/2025 10:30 AM INTELLECTUAL PROPERTY MANAGER [facility] [address] [place] [address] Adenike Salcido, BANDMILL OPERATOR [address] [place] [address] Discharge Disposition: Discharged to home or Selfcare 03/19/2025 9:00 AM INTELLECTUAL PROPERTY MANAGER Outpatient Clinic Visit [facility] [address] [place] [address] Adenike Salcido, BANDMILL OPERATOR [address] [place] [address] Discharge Disposition: Discharged to home or Selfcare Health Maintenance Due Date Last Done Comments Hepatitis C Virus (HCV) Screening 1987 Hepatitis B Immunization (3 of 3 - 3-dose series) 05/05/1997 02/17/1997, 01/13/1997 Varicella Immunization (1 of 2 - 13+ 2-dose series) 07/30/2000 Pap Smear 07/30/2008 Human Papillomavirus (HPV) Immunization (1 - Risk 3-dose SCDM series) 07/30/2014 Cervical Cancer Screening (CCS) 07/30/2017 HPV/Cotest 07/30/2017 Influenza Immunization (#1) 11/18/202412/19, 12/18/2022, 02/06/2022, Additional history exists SARS-COV-2 Immunization ( - season) 2024 04/03/2020, 03/16/2020 Respiratory Syncytial Virus (RSV) Immunization (Adult) (1 - 1-dose 75+ series) 07/30/2062 DTaP/Tdap/Td Immunization Discontinued 2018, 10/30/1992, 04/19/1988, Additional history exists TdaP Immunization Completed 12/25/2018 Meningococcal Immunization (ACWY) Aged Out No longer eligible based on patient's age to complete this topic Pneumococcal Immunization Combined Aged Out No longer eligible based on patient's age to complete this topic Rotavirus Immunization Aged Out No lo nger eligible based on patient's age to complete this topic Goals Goal Patient Goal Type Associated Problems Recent Progress Patient-Stated? Author ANXIETY Anxiety On track(2024 10:12 AM INTELLECTUAL PROPERTY MANAGER) No Adenike Salcido LCSW Note: Goal/Objective: Increase coping skills, stress management strategies and focus on self care. Anticipated Time Frame for Goal Completion: 6 months Goal Reviewed with: patient Readiness to change: Ready to change Department associated with goal: [facility] Steps to achieve goal: will attend counseling/psychotherapy sessions at least once monthly, at least 6 sessions, utilizing individual and/or group sessions to express thoughts and feelings. to identify, verbalize and process at least three contributing factors/triggers to anxiety and depression. to identify and verbalize at least three actions/skills to prevent and/or cope with anxiety and depression. to put into action, at least one time weekly, for one month, an action/skill to prevent and or cope with anxiety and depression. STRESS MANAGEMENT Stress Management On track(2024 10:12 AM INTELLECTUAL PROPERTY MANAGER) Yes Adenike Salcido LCSW Note: Will determine patient stated goals next session [place] [address] [employer] * Guarantor: [employer] Account Type Relation to Patient Date of Phone Billing Address Institutional Other [address] [place] [address] Care Teams Hot Dip Plater Relationship Specialty Start Date End Date Provider, Unknown UNKNOWN PCP - General 11/18/22
--- OUTSIDE RECORDS SUMMARY | 2025-02-22 20:51 | XMS_ITS | Encounter Summary ---
Author Organization [facility] Address [facility] [place] [address] Care Team Providers Care Clarifier Operator Helper Name Role Phone Miguel Pagan MD Primary Care Prov ider Blanca Martini RN Unavailable Unavailable Encounter Details Date Type Department Care Team (Late st Contact Info) Description 03/05/2024 [employer] Message Enc [facility] Family Medicine - [address], [address] [place] [phone] [employer], [facility] Provider medication Social History Tobacco Use Types Packs/Day Years [...] Answer Date Recorded Patient Health Questionnaire-2 Score 5 01/30/2024 Education Answer Date Recorded What is the highest level of school you have completed or the highest degree you have received? Bachelor's degree (e.g., BA, AB, BS) 03/30/2018 Comments No Sex and Gender Information Value Date Recorded Sex Assigned at Female 04/01/2018 8:45 PM PRODUCTION SUPV Legal Sex Female 8:43 PM CDT Gender Identity Female 04/01/2018 8:45 PM PRODUCTION SUPV Sexual Orientation Straight 03/30/2018 9: 24 AM PRODUCTION SUPV Occupation Industry Job Start Date Job End [...] Assessment Author Status No 08/05/2018 11:59 AM Rommel Huggins LPN Active * Because of a physical, [...] st Contact Info) Description 04/02/2025 12:00 PM PRODUCTION SUPV Office Visit [facility] Family Medicine - [address], [address] [place] [phone] Bartolo VII, Miguel Mayer MD [address] [facility], [address] [phone] documented as of this encounter Visit Diagnoses Not on filedocumented in this encounter Additional Health Concerns Infection Onset Date Last Indicated Resolved Time COVID-19 Rule Out 03/29/2024 03/29/2024 03/29/2024 3:26 PM PRODUCTION SUPV Assessment Noted Time PHQ-9 Depression Total Score: 17 024 12:54 PM PRODUCTION SUPV documented as of this encounter Care Teams Clarifier Operator Helper Relationship Specialty Start Date End Date Bartolo VII, Miguel Mayer MD [address] [place] [address] PCP - General FAMILY PRACTICE 12/28/23 Blnaca Martini, metalizing machine operator (Ambulatory) CARE MANAGEMENT 04/05/24 documented as of this encounter
--- OUTSIDE RECORDS SUMMARY | 2025-02-22 20:51 | XMS_ITS | Clinical Summary ---
Author Organization [facility] Address [address] [place] [address] Care Team Providers Care Cardiology Physician Name Role Phone Dewey Oliver MD Unavailable [phone] Ivette Romero Primary Care Provider Allergies Active Allergy Reactions Criticality Noted Date Comments Banana Rash,Urticaria Medium 02/05/2020 Bupropion Dizziness,Nausea & Vomiting,Vision changes Medium 12/30/2021 Naproxen Other (See comments) High 12/25/2018 kidney failure RENAL FAILURE kidney failure Nsaids (Non-Steroidal Anti-Inflammatory Drug) Other (See comments) High 10/01/2018 kidney failure Renal failure kidney failure [place] (Prunus Persica) Hives,Swelling,Urtica pauline High 07/27/2015 THIS IS PEACHES THIS IS PEACHES THIS IS PEACHES Medications multivit with min-folic acid 0.4 mg tablet Take 1 tablet by mouth 3 (three) times a day with meals Active ipratropium-albute roL (DUO-NEB) 0.5-2.5 mg/3 mL nebulizer solution Inhale 3 mL every 6 (six) hours as needed 0 Active omeprazole (PriLOSEC) 20 mg capsule Take 1 capsule (20 mg total) by mouth daily before breakfast Active ondansetron ODT (ZOFRAN-ODT) 4 mg disintegrating tablet Take 1 tablet (4 mg total) by mouth every 8 (eight) hours as needed for nausea 20 tablet 3 Active amLODIPine (NORVASC) 5 mg tablet Take 1 tablet (5 mg total) by mouth daily 90 tablet 4 4 Active scopolamine 1 mg over 3 days patch [address] 1 patch on the skin every third day 3 patch 4 Active albuterol HFA (PROVENTIL HFA,VENTOLIN HFA,PROAIR HFA) 90 mcg/actuation inhaler Inhale 1-2 puffs every 4 (four) hours as needed for wheezing 1 each 3 4 Active montelukast (SINGULAIR) 10 mg tablet Take 1 tablet (10 mg total) by mouth nightly 90 tablet 3 4 Active cyanocobalamin (Vitamin B-12) 1,000 mcg tablet Take 1 tablet (1,000 mcg total) by mouth daily 4 Active cyclobenzaprine (FLEXERIL) 5 mg tablet Take 1 tablet (5 mg total) by mouth 3 (three) times a day as needed for muscle spasms for up to 10 days 30 tablet 1 4 Active rosuvastatin (CRESTOR) 20 mg tablet Take 1 tablet (20 mg total) by mouth daily 90 tablet 1 4 Active tirzepatide (Mounjaro) 7.5 mg/0.5 mL pen injector Inject 7.5 mg under the skin every 7 days 2 mL 1 4 Active traZODone (DESYREL) 100 mg tablet Take 1 tablet (100 mg total) by mouth nightly as needed for sleep 90 tablet 1 4 Active ascorbic acid (VITAMIN C) 500 mg tablet,chewable Take 1 tablet/chew tab (500 mg total) by mouth 2 (two) times a day 60 tablet/chew tab 4 Active cholecalciferol (VITAMIN D-3) 2000 unit capsule Take 1 capsule (2,000 Units total) by mouth daily 30 capsule 4 Active HYDROcodone-acetam inophen (NORCO) 5-325 mg per tabletIndications: Pain Take 1-2 tablets by mouth every 4 (four) hours as needed for pain 20 tablet 4 Active Active Problems Problem Noted Date Diagnosed Date Carpal tunnel syndrome, bilateral 01/01/2024 Cubital tunnel syndrome on left 01/01/2024 Cubital tunnel syndrome on right 01/01/2024 Cervicalgia 10/04/2023 Assessment & Plan (10/04/2023 1:09 PM CDT): Neurovascularly intact today. Again will order MRI and order PT. Will monitor response. Chronic bilateral thoracic back pain 10/03/2023 Assessment & Plan (10/04/2023 1:04 PM CDT): Chronic intermittent. Recent exacerbation. Also with bilateral extremity paresthesias. Recommend MRI. Will plan accordingly once results are received. We will also initiate PT. Red flags reviewed. Hand paresthesia 08/14/2023 Assessment & Plan (10/04/2023 1:06 PM CDT): Continue with hand specialist. Will also have MRI as discussed. Hypertension, essential 04/04/2023 Assessment & Plan (04/04/2023 11:36 AM SAFETY SITTER): Patient was started on amlodipine-benazepril 5-20 mg tablet at hospital discharge. She reports feeling very tired and nauseous last night, BP at home was 80/40. Will discontinue medication, prescribed amlodipine 5 mg daily. 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 Patient is feeling well at this time, denies any chest pain, shortness and breath or fatigue. No palpitations. Thought to have been in AFib at some point during hospitalization? Is currently wearing therapist phys. She is scheduled for echo 05/18/2023 and will have follow-up with circular shear operator at [facility], Dr. Jason Guzmán. Patient with significant family history of heart disease, mother with ID in her 30s. Labs ordered, CBC, CMP, lipid, TSH and UA Mixed hyperlipidemia 04/04/2023 Assessment & Plan (04/04/2023 11:25 AM SAFETY SITTER): Patient experiencing RLS with Lipitor, is currently taking Crestor 20 mg and tolerating well. Repeat labs ordered today. Extensive family history of heart disease. Blue toe syndrome of left lower extremity 2023 Assessment & Plan (04/04/2023 11:33 AM SAFETY SITTER): Resolved. Patient is scheduled to have echocardiogram to rule out cardiac origin of embolus? Scheduled for follow-up with cardiology/vascular next month. Was discharged home with nitro paste to apply topically to her left great toe, states she is not needed to use this. Chronic tonsillitis 03/31/2023 H/O gastric sleeve 05/14/2021 Acute interstitial nephritis 09/03/2018 Metabolic acidosis 08/14/2018 Assessment & Plan (08/14/2018 10:26 AM CDT): -Improved, continue Na bicarb 1300 TID Iron deficiency anemia 08/11/2018 Assessment & Plan (08/14/2018 10:26 AM CDT): -s/p Infed this admission -Monitor CBC, transfuse for Hgb <7 Assessment & Plan (08/13/2018 11:15 AM CDT): -s/p Infed this admission -Monitor CBC, transfuse for Hgb <7 Assessment & Plan (08/12/2018 1:46 PM CDT): S/P IV iron yesterday Monitor CBC Assessment & Plan (08/11/2018 1:46 PM CDT): IV iron today Monitor CBC Abnormal urinalysis 08/10/2018 Assessment & Plan (08/14/2018 10:24 AM CDT): -Work-up for LIBBY as noted above. Urine cultures with insignificant growth. Assessment & Plan (08/13/2018 11:22 AM CDT): -Work-up for LIBBY as noted above. Urine cultures with insignificant growth. Assessment & Plan (08/12/2018 1:47 PM CDT): Unclear clinical significance Hold antibiotics for now Urine cultures with insignificant growth Assessment & Plan (08/11/2018 1:46 PM CDT): Unclear clinical significance Hold antibiotics for now Monitor urine cultures Acute renal failure 08/03/2018 Assessment & Plan (08/14/2018 10:32 AM CDT): -Etiology not entirely clear. Possible AIN related to recent PPI or Macrobid use. Work-up so far includes negative hemolysis labs, normal C3 and C4, dsDNA <1, elevated FLC with elevated ratio (SPEP pending), negative HIV, negative RPR, negative hepatitis panel. Oxalate level and ANCA pending. ANGELES, cryos, and anti-GBM sent last night. -s/p Solumedrol, now on prednisone 60. Per renal recs, will continue prednisone for an additional 2 weeks with further steroids based on biopsy results. -Cr continued to improve, metabolic acidosis also improved -Renal biopsy today. Will likely be performed this afternoon per radiology. Possible discharge after post-procedure monitoring today assuming no complications, however will discuss with US radiology. Assessment & Plan (08/13/2018 11:22 AM CDT): -Etiology not entirely clear. Possible AIN related to recent PPI or Macrobid use. Work-up so far includes negative hemolysis labs, normal C3 and C4, dsDNA <1, elevated FLC with elevated ratio (SPEP pending), negative HIV, negative RPR, negative hepatitis panel. Oxalate level and ANCA pending. ANGELES, cryos, and anti-GBM do not appear to have been sent so will obtain. -s/p Solumedrol, now on prednisone 60. Per renal recs, will continue prednisone for an additional 2 weeks -Plan for renal biopsy, however not able to be done until tomorrow due to holiday. Radiology order placed. NPO after MN. -Trend BMP Assessment & Plan (08/12/2018 1:46 PM CDT): Renal biopsy not available until August 14 S/P IV methylprednisolone x 1, now on prednisone daily Elevated kappa ratio - check SPEP Monitor renal function and electrolytes. Assessment & Plan (08/11/2018 1:45 PM CDT): Renal service requesting biopsy on inpatient basis - not available until August 14 IV methylprednisolone today, then prednisone daily starting tomorrow Monitor renal function and electrolytes. Anxiety 09/16/2016 Obesity 09/16/2016 Assessment & Plan (04/04/2023 11:26 AM SAFETY SITTER): Doing well with weight loss, appetite 5 mg weekly. Has been out of medication since hospital discharge. Would like to increase dosage. Recommended patient resume dosage of 5 mg weekly for the next 1 month and then increase to 7.5 mg weekly as tolerated. Continue to work on diet and exercise. Depression 07/27/2015 Assessment & Plan (08/14/2018 10:26 AM CDT): -Continue Celexa Assessment & Plan (08/13/2018 11:16 AM CDT): -Continue celexa Assessment & Plan (08/12/2018 1:47 PM CDT): Continue celexa Assessment & Plan (08/10/2018 11:47 PM CDT): Continue celexa Dyslipidemia 07/27/2015 Gastroesophageal reflux disease without esophagi tis 07/27/2015 Assessment & Plan (08/14/2018 10:26 AM CDT): -PPI given possible AIN. Pt reports having heartburn today. Tums PRN. Assessment & Plan (08/13/2018 11:17 AM CDT): -PPI given possible AIN. Pt reports having heartburn today. Tums PRN. Assessment & Plan (08/12/2018 1:47 PM CDT): Hold PPI given possibility of AIN per renal recs Assessment & Plan (08/10/2018 11:48 PM CDT): Hold PPI given possibility of AIN (see renal note). Asthma 07/27/2015 Assessment & Plan (08/14/2018 10:26 AM CDT): -Stable, albuterol PRN Assessment & Plan (08/13/2018 11:16 AM CDT): -Stable, albuterol PRN Assessment & Plan (08/12/2018 1:47 PM CDT): Continue prn albuterol Assessment & Plan (08/10/2018 11:49 PM CDT): Continue prn albuterol Resolved Problems Problem Noted Date Diagnosed Date Resolved Date Acute pharyngitis 12/13/2019 03/31/2023 Immunizations Immunization Administration Dates Next Due DTP 10/30/1992,04/19/1988,1987 ,1987 Hep B, Adolescent or Pediatric 02/17/1997,1996 Influenza, Split 04/05/2013 Influenza, Trivalent, IM (MDV) 12/02/2016 Influenza, Unspecified 12/18/2022,2021,02/01/2021,01/03/2019,0 12/02/2016 MMR 10/30/1992,11/10/1988 OPV 10/30/1992,1987,1987 ,1987 Tdap 12/25/2018 Surgical History Surgery Date Site/Laterality Comments HARDWARE REMOVAL from left forearm CHOLECYSTECTOMY SLEEVE GASTROPLASTY for weight loss CLOSED REDUCTION RADIAL SHAFT FRACTURE US GUIDED BIOPSY RENAL 08/14/2018 N/A TONSILLECTOMY Medical History Medical History Date Comments Asthma GERD (gastroesophageal reflux disease) Headache Insomnia Left radial fracture Acute pharyngitis 12/13/2019 Hypertension Family History Medical History Relation Name Comments Diabetes Father Hypertension Father Diabetes Mother Hypertension Mother Arthritis Neg Hx Asthma Neg Hx Autoimmune disease Neg Hx Kidney disease Neg Hx Relation Name Status Comments Brother 1 Alive Brother 2 Alive Father Alive Mother Alive Sister Alive Social History Tobacco Use Types Packs/Day Years Used Date Smoking Tobacco: Never Smokeless Tobacco: Never Tobacco Cessation:Counseling Given: Not Answered Alcohol Use Standard Drinks/Week Comments Never 0 (1 standard drink = 0.6 oz pur e alcohol) AUDIT-C Answer Date Recorded Q1: How often do you have a drink containing alcohol? Never 01/10/2024 Q2: How many drinks containi ng alcohol do you have on a typical day when you are drinking? Patient does not drink 10/23/202 4 Q3: How often do you have si x or more drinks on one occasion? Never 01/10/2024 PHQ-2 Answer Date Recorded PHQ-2 Total Score (If total score is 3 or more points, staff should administer the PHQ-9) 0 04/04/2023 Personal Safety Answer Date Recorded Have you ever been in or are you currently in a harmful physical or emotional relationship or is someone making you feel afraid or unsafe? Denies 01/17/2024 Comments No Sex and Gender Information Value Date Recorded Sex Assigned at Not on file Legal Sex Female 1:18 AM SAFETY SITTER Gender Identity Not on file Sexual Orientation Not on file Last Filed Vital Signs Vital Sign Reading Time Taken Comments Blood Pressure 113/71 02/20/2024 4:01 PM SAFETY SITTER Pulse 73 02/20/2024 4:01 PM SAFETY SITTER Temperature 36.4 C (97.6 F) 01/17/2024 2:58 PM CDT Respiratory Rate 20 02/20/2024 4:01 PM SAFETY SITTER Oxygen Saturation 97% 01/17/2024 2:58 PM CDT Inhaled Oxygen Concentration - - Weight 85.5 kg (188 lb 8 oz) 02/20/2024 4:01 PM SAFETY SITTER Height 152.4 cm (5') 02/20/2024 4:01 PM SAFETY SITTER Body Mass Index 36.81 02/20/2024 4:01 PM SAFETY SITTER Plan of Treatment Health Maintenance Due Date Last Done Comments Cervical Cancer Screening 1987 Varicella Vaccines (1 of 2 - 13+ 2-dose series) 07/30/2000 Regular Well Visit/Exam 18-64 07/30/2005 Pneumococcal vaccine <65 (1 of 2 - PCV) 07/30/2006 HPV Vaccines (1 - 3-dose SCD M series) 07/30/2014 Depression Screening 04/04/2024 04/04/2023, 08/31/2022, 04/12/2022 Covid-19 Vaccine (3 - 2024-2 6 season) 2024 04/03/2020, 03/16/2020 Influenza Vaccine (#1) 2024 , 02/06/2022, 02/01/2021, Additional history exists DTaP/Tdap/Td Vaccine (6 - Td or Tdap) 12/25/2028 12/25/2018, 10/30/1992, 04/19/1988, Additional history exists Hepatitis B Screening Completed 02/17/1997, 997 Hepatitis C Screening Completed 08/11/2018 Medical Devices Implanted Type Area Pulp Plant Supervisor Device Identifier Shelf Expiration Date Model / Serial / Lot Screw Screw Left: Arm Procedures Procedure Name Priority Date/Time Associated Diagnosis Comments HEPATITIS PANEL, ACUTE Timed 08/11/2018 12:13 AM CDT from Last 3 Months or Most Recently Relevant to Health Maintenance Results * Hepatitis panel, acute (08/11/2018 12:13 AM CDT) Hep A IgM Nonreactive Nonreactive [facility] Comment: Interpretive Data If test is reported as GRAYZONE, new sample should be drawn in two weeks for testing. Current interpretive data was last revised on 2016. Hep B core IgM Nonreactive Nonreactive [facility] Comment: Interpretive Data If test is reported as GRAYZONE, new sample should be drawn for testing. Current interpretive data was last revised on 2016. Hep C Ab Nonreactive Nonreactive [facility] Comment: Interpretive Data Positive results should be confirmed by a molecular method. If positive, a second separately collected sample should be submitted for Hepatitis C Virus (HCV) RNA Detection and Quantitation by Real-Time Reverse Bridges Supervisor-PCR (RT-PCR). Current interpretive data was last revised on 2016. HepBsAg Nonreactive Nonreactive [facility] Blood specimen (specimen) 08/11/2018 12:13 AM CDT 08/11/2018 1:18 AM CDT Narrative [facility] - 08/11/2018 12:44 PM CDT Comfort Castro MD LAB MICROBIOLOGY - GENERAL ORDERABLES Edited Result - Final [facility] [place] [address] from Last 3 Months or Most Recently Relevant to Health Maintenance Insurance [facility] EXCLUSIVE CHOICE [facility] OPEN ACCESS [facility] EXCLUSIVE CHOICE [facility] Advance Directives For more information, please contact: [phone] * Full Code (Latest Code Status on File) Date Activated Date Inactivated Comments 08/10/2018 10:34 PM 08/15/2018 12:05 AM Care Teams Cardiology Physician Relationship Specialty Start Date End Date Ivette Romero PA [address] [place] [address] [address] [address] PCP - General Orthopedic Surgery 02/09/24 [place] [id number] [address] [address] 08/10/18
--- OUTSIDE RECORDS SUMMARY | 2025-02-22 20:51 | XMS_ITS | Encounter Summary ---
Author Organization [facility] Address [address] [place] [address] Care Team Providers Care Unix Engineer Name Role Phone Alis Ramon MD Primary Care Provider [phone] Non-Staff, Provider Primary Care Provider Yadira Mcfarland VII, Miguel Mayer MD Primary Care Prov ider Blanca Martini RN Unavailable Unavailable Encounter Details Date Type Department Care Team (Late st Contact Info) Description 09/14/2022 [employer] Message Enc [facility] Medical Group - [facility] [address] [place], [place] [address] [employer], [facility] Provider Air Quality Message Social History Tobacco Use Types Packs/Day Years [...] Sex Assigned at Female 04/01/2018 8:45 PM TICKET TAKER Legal Sex Female 8:43 PM CDT Gender Identity Female 04/01/2018 8:45 PM TICKET TAKER Sexual Orientation Straight 03/30/2018 9: 24 AM TICKET TAKER Occupation Industry Job Start Date Job End [...] st Contact Info) Description 04/02/2025 12:00 PM TICKET TAKER Office Visit [facility] Medical Group Family Medicine - [address], [address] [place] [phone] Bartolo VII, Miguel Mayer MD [facility] [facility] [address] [id number] documented as of this encounter Visit Diagnoses Not on filedocumented in this encounter Additional Health Concerns Infection Onset Date Last Indicated Resolved Time COVID-19 Rule Out 03/29/2024 03/29/2024 03/29/2024 3:26 PM TICKET TAKER Assessment Noted Time PHQ-9 Depression Total Score: 0 05/14/19 3:33 PM TICKET TAKER documented as of this encounter Care Teams Unix Engineer Relationship Specialty [place] [address] [facility]. [address] [place] [id number] PCP - General FAMILY PRACTICE 05/14/21 09/25/23 Non-Staff, Provider PCP - General UNKNOWN PHYSICIAN SPECIALTY 09/26/23 12/27/23 Miguel Pagan MD [address] [place] [address] PCP - General FAMILY PRACTICE 12/28/23 Blanca Martini sky diver (Ambulatory) CARE MANAGEMENT 04/05/24 documented as of this encounter
--- OUTSIDE RECORDS SUMMARY | 2025-02-22 20:51 | XMS_ITS | Encounter Summary ---
Author Organization [facility] Address [address] [place] [address] Phone Care Team Providers Care Program Manager Environmental Planning Name Role Phone Provider, Unknown Primary Care Provider Unavaila ble Encounter Details Date Type Department Care Team (Latest Contact Info) Description 08/03/2023 Transcribe Orders [facility] [address] [place] [phone] Gloria Almodovar, INFORMATICA MDM ARCHITECT, TECHNICAL ADJUSTER [address] [place] [address] Immunity status testing (Primary Dx) Social History Tobacco Use Types Packs/Day Years Used Date Smoking Tobacco: Never Assessed Comments Unknown Sex and Gender Information Value Date Recorded Sex Assigned at Not on file Legal Sex Female 4:25 PM CDT Gender Identity Not on file Sexual Orientation Not on file documented as of this encounter Plan of Treatment Upcoming Encounters Date Type Department Care Team (Latest Contact Info) Description 03/06/2025 10:30 AM DATA ENTRY REPRESENTATIVE [facility] [address] [place] [phone] Adenike Salcido, RESTAURANT HOST [address] [place] [address] Discharge Disposition: Discharged to home or Selfcare 03/19/2025 9:00 AM DATA ENTRY REPRESENTATIVE Outpatient Clinic Visit [facility] [address] [place] [address] Adenike Salcido, RESTAURANT HOST [address] [place] [address] Discharge Disposition: Discharged to home or Selfcare Scheduled Orders Name Type Priority Associated Diagnoses Orde r Schedule HEPATITIS B SURFACE ANTIBODY (HBSAB) Lab Routine Immunity status testing Expected: 08/03/2023, Expires: 02/03/2024 documented as of this encounter Visit Diagnoses Diagnosis Immunity status testing- Primary Antibody response examination documented in this encounter Care Teams Program Manager Environmental Planning Relationship Specialty Start Date End Date Provider, Unknown UNKNOWN PCP - General 11/18/22 documented as of this encounter
--- OUTSIDE RECORDS SUMMARY | 2025-02-22 20:51 | XMS_ITS | Clinical Summary ---
Author Organization [facility] Address [address] [place] [address] Care Team Providers Care Special Needs Child Caregiver Name Role Phone Miguel Pagan MD Primary Care Prov ider Blanca Martini RN Unavailable Unavailable Allergies Active Allergy Reactions Criticality Noted Date Comments Banana Rash Medium 02/05/2020 Naproxen Other (see comment) High 12/25/2018 RENAL FAILURE kidney failure Nsaids Other (see comment) High 10/01/2018 Renal failure kidney failure Prunus Persica Hives,Swelling High 07/27/2015 THIS IS PEACHES THIS IS PEACHES Bupropion Dizziness 12/30/2021 Medications ipratropium-albut amaris 0.5-2.5 (3) MG/3ML SolutionIndicatio ns:Cough,Wheezing Take 3 mLs by nebulization every 6 (six) hours as needed. 120 mL 1 06/03/19 20 Active ondansetron 4 MG tabletIndications :Nausea Take 1 tablet (4 mg total) by mouth every 6 (six) hours as needed. 20 tablet 1 07/07/19 21 Active traMADol 50 MG tabletIndications :Chronic Pain Take 1 tablet (50 mg total) by mouth every 6 (six) hours as needed. Indications: Chronic Pain 45 tablet 07/07/19 21 Active SCOPOLAMINE 1 MG/3DAYS patchIndications: Motion sickness, initial encounter APPLY 1 PATCH TOPICALLY TO THE SKIN EVERY 72 HOURS 7 patch 1 08/19/19 22 Active VENTOLIN HFA 108 (90 Base) MCG/ACT inhalerIndication s:Mild intermittent asthma without complication (HHS/HCC) INHALE 1 TO 2 PUFFS INTO THE LUNGS EVERY 4 HOURS NEEDED 18 g 3 01/02/20 22 Active rosuvastatin (CRESTOR) 20 MG tablet Take 2 tablets (40 mg total) by mouth daily. 03/15/20 23 Active traZODone (DESYREL) 100 MG tabletIndications :Primary insomnia Take 2 tablets (200 mg total) by mouth nightly at bedtime. 180 tablet 3 09/05/19 25 Active tirzepatide (ZEPBOUND) 5 MG/0.5ML injectionIndicati ons:Weight Loss Inject 5 mg into the skin once a week. Indications: Weight Loss 2 mL 10/10/19 25 Active omeprazole (PRILOSEC) 20 MG capsuleIndication s:Gastroesophagea l reflux disease without esophagitis Take 1 capsule (20 mg total) by mouth daily. 30 capsule 12/25/19 25 Active citalopram (CELEXA) 40 MG tabletIndications :Anxiety,Current moderate episode of major depressive disorder, unspecified whether recurrent (CMS/HCC) Take 1 tablet (40 mg total) by mouth daily. 90 tablet 3 12/25/19 25 Active methylphenidate CR (CONCERTA) 27 MG tabletIndications :Attention deficit hyperactivity disorder (ADHD), combined type Take 1 tablet (27 mg total) by mouth every morning. 30 tablet 12/25/19 25 Active Active Problems Problem Noted Date Diagnosed Date Primary insomnia 04/01/2024 Assessment & Plan (04/01/2024 10:41 AM DIRECTOR CARDIOVASCULAR): Chronic. Mostly secondary to rumination. Plan for uncontrolled mood/anxiety as above. -Medications: Citalopram to be increased to 40 mg p.o. daily, trazodone 200 mg p.o. nightly -At next appointment will give sleep hygiene handout Bilateral carpal tunnel syndrome 12/28/2023 Assessment & Plan (12/28/2023 8:16 AM CDT): Chronic. Initial injury in 2010 with broken left arm. Persistent numbness status post repair. EMG on 07/2023 with no abnormalities. 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 She also reports that she has decreased feelings in her fourth and fifth digit on her arms across the couch. Established with [facility] Ortho and sports medicine, planned to have bilateral carpal tunnel release and bilateral cubital tunnel release, scheduled on 01/17/2024. -Physical exam with vitals unremarkable. No erythema, swelling, or other overlying skin changes. Decreased sensation of entire left hand and ulnar side of forearm. 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 Bilateral Tinel's negative. Bilateral Phalen's negative. Bilateral negative Tinel's negative -Discussed with patient to hold all NSAIDs, aspirin, and Mounjaro 7 days prior to surgery -Patient has side effect to NSAIDs, kidney failure. Patient does not take NSAIDs -Patient currently not on any blood thinners -Patient states that she has not been on Mounjaro for weeks. -Patient has controlled blood pressure. Not diabetic. Mildly continue to meet asthma, controlled. -Patient currently low risk for the surgery as above, ultimately the decision to proceed with surgery is to be made by the surgeon Cubital tunnel syndrome, bilateral 12/28/2023 Assessment & Plan (12/28/2023 8:17 AM CDT): History and plan as above, with carpal tunnel syndrome, bilaterally Attention deficit hyperactiv ity disorder (ADHD), combined type 12/28/2023 Assessment & Plan (04/01/2024 10:41 AM DIRECTOR CARDIOVASCULAR): Chronic. Previously on Ritalin 20 mg IR. There is a period of time that she was off of it secondary to cost, in which she was unable to finish tasks, felt unmotivated, and was restless. Was on medication until about 02/2023. Patient states that previous provider was not comfortable transitioning to an extended release with elevated blood pressure at the time. -Patient does have issues sleeping already. Utilizing trazodone for assistance sleeping. Management of uncontrolled anxiety and depression, as above -CSA agreement up-to-date -Medication: Concerta 27 mg p.o. daily Assessment & Plan (01/30/2024 1:01 PM DIRECTOR CARDIOVASCULAR): Chronic. Originally diagnosed in fourth grade. Previously on Ritalin 20 mg IR. There is a period of time that she was off of it secondary to cost, in which she was unable to finish tasks, felt unmotivated, and was restless. Was on medication until about 02/2023. Patient states that previous provider was not comfortable transitioning to an extended release with elevated blood pressure at the time. -Blood pressure today 110/80, on amlodipine 5 mg p.o. daily -Patient does have issues sleeping already. Utilizing trazodone for assistance sleeping. Management of uncontrolled anxiety and depression, as above -States that at work she feels like her attention and ability to complete tasks to get worse while being off the medication -CSA agreement signed -Will start with Concerta 27 mg p.o. daily -Follow-up in 4 weeks, consider increasing dose at that time Assessment & Plan (12/28/2023 8:19 AM CDT): -Patient reports that she was previously on ADHD medication since she was a child, however with change of nurse practitioners at her previous office was told that she would not refill it unless she got reevaluated. -Has been off ADHD medications since 02/2023 -Patient states that she always had baseline anxiety, however feels like it has worsened since being off ADHD medications -Will have a follow-up appointment to further discuss ADHD history, previous ADHD medications, and further management of ADHD, anxiety, and depression H/O gastric sleeve 05/14/2021 Acute pharyngitis, unspecified etiology 12/13/19 20 Metabolic acidosis 08/14/2018 Overview (01/03/2019): Last Assessment & Plan: -Improved, continue Na bicarb 1300 TID Iron deficiency anemia 08/11/2018 Overview (01/03/2019): Last Assessment & Plan: -s/p Infed this admission -Monitor CBC, transfuse for Hgb <7 Bariatric surgery status 08/08/2018 Overview (01/03/2019): Overview: Gastric sleeve in 2017 Acute renal failure (ARF) 08/03/2018 Mild intermittent asthma without complication Assessment & Plan (12/28/2023 8:20 AM CDT): Chronic. Controlled. Currently established with pulmonology at sleep. -Medications: Singulair, albuterol as needed -States to only use albuterol once every 2 weeks -States that she has PFTs to be done in the next couple months. Had a sleep study that was negative recently. -Will continue to monitor Anxiety 09/16/2016 Assessment & Plan (04/01/2024 10:39 AM DIRECTOR CARDIOVASCULAR): Chronic. Uncontrolled. Have previously tried: Klonopin and Wellbutrin with no alleviation of symptoms. Had also tried citalopram with alleviation of symptoms, however, had side effect of low libido. Patient states that she would still rather restart citalopram because of history of success - BECCA-7 Total Score: 15 , previously 15, 17 -Currently established with therapist, seen every 2 weeks -Medications: Citalopram 20 mg p.o. daily -Increase citalopram to 40 mg p.o. daily - F/u in 6-8 weeks, if persistent symptoms consider changing to a different SSRI/SNRI versus augmentation with BuSpar Assessment & Plan (01/30/2024 12:58 PM DIRECTOR CARDIOVASCULAR): Chronic. Uncontrolled. Reports dysregulation, excessive, and out of control worry more days than not in the last 6 mo. Have previously tried: Klonopin and Wellbutrin with no alleviation of symptoms. Had also tried citalopram with alleviation of symptoms, however, had side effect of low libido. Patient states that she would still rather restart citalopram because of history of success - Reports: Restlessness, Easily Fatigued, Difficult Concentration, Irritability, Muscle Tension, and Sleep disturbance - BECCA-7 Total Score: 15 (01/30/2024 12:55 PM), previously 17 -Currently established with therapist, seen every 2 weeks - States significant distress and impairment in social / occupational aspects of life - Sxs not attributable to substance use, medication side effects, or other mental / medical disorders - D/w pt that increasing physical activity can alleviate some sxs -Start citalopram 20 mg p.o. daily - F/u in 6-8 weeks, if persistent symptoms consider increasing citalopram dose Assessment & Plan (12/28/2023 8:18 AM CDT): Screening BECCA-7 score of 17 -Patient reports that she was previously on ADHD medication since she was a child, however with change of nurse practitioners at her previous office was told that she would not refill it unless she got reevaluated. -Has been off ADHD medications since 02/2023 -Patient states that she always had baseline anxiety, however feels like it has worsened since being off ADHD medications -Will have a follow-up appointment to further discuss ADHD history, previous ADHD medications, and further management of ADHD, anxiety, and depression Obesity 09/16/2016 Asthma 07/27/2015 Depression 07/27/2015 Assessment & Plan (04/01/2024 10:40 AM DIRECTOR CARDIOVASCULAR): Chronic. Uncontrolled. Have previously trailed: Klonopin and Wellbutrin, no alleviation of symptoms. Previously has tried citalopram with success. However, had issues with low libido. No current SI / HI. - Patient Health Questionnaire-9 Score: 10, previously 17, 17 -Medication: Citalopram 20 mg p.o. daily - Currently seeing therapy: Yes. Sees them about 1 per 2 weeks -Increasing citalopram to 40 mg p.o. daily - F/u in 4-6 weeks to reassess medication efficacy, switching to a different SNRI/SSRI versus augmentation with BuSpar Assessment & Plan (01/30/2024 12:59 PM DIRECTOR CARDIOVASCULAR): Chronic. Uncontrolled. Have previously trailed: Klonopin and Wellbutrin, no alleviation of symptoms. Previously has tried citalopram with success. However, had issues with low libido. Despite this, patient would like to restart citalopram secondary to history of success on the medication. No current SI / HI. - Reports: Sleep disturbances, Decrease in interests, Decrease in energy, Decrease in concentration, and Decrease or increase in appetite - Patient Health Questionnaire-9 Score: 17 (01/30/2024 12:54 PM), previously 17 -Start citalopram 20 mg p.o. daily - Currently seeing therapy: Yes. Sees them about 1 per 2 week.s - Sxs cause significant distress in social, occupational, and other areas of function - Sxs are not attributable to substance use, medication side effects, or other mental / medical disorders - Declines any episodes of brie or hypomania - F/u in 4-6 weeks to reassess medication efficacy, if persistent increased dose of citalopram Assessment & Plan (12/28/2023 8:18 AM CDT): PHQ-9 score of 17 -Patient reports that she was previously on ADHD medication since she was a child, however with change of nurse practitioners at her previous office was told that she would not refill it unless she got reevaluated. -Has been off ADHD medications since 02/2023 -Will have a follow-up appointment to further discuss ADHD history, previous ADHD medications, and further management of ADHD, anxiety, and depression Dyslipidemia 07/27/2015 Gastroesophageal reflux disease without esophagi tis 07/27/2015 Resolved Problems Problem Noted Date Diagnosed Date Resolved Date Acute renal failure 08/03/2018 08/05/19 19 Wears glasses 07/12/2017 11/29/2019 Encounters Date Type Department Care Team Description 02/20/2025 MyChart Message Enc [facility] Family Medicine - [place] [address], [address] [place] [address] Bartolo VII, Miguel Mayer MD UTI 01/20/2025 Scan HEALTH INFO SRVCS Scanned, Doc Med Group from Last 3 Months Immunizations Immunization Administration Dates Next Due Dtp (Generic) 10/30/1992, 9,1987,1987 FLUCELVAX (ccIIV3, TRIVALENT, 0.5mL) 01/08/2024 Fluzone 6 Months+ Quad (0.5 mL Prefilled Syringe) 12/13/2019(Deferred: Patient Refused - pt gets at work) Hepatitis B Pediatric 02/17/1997,01/13/1997 Influenza (Generic) 12/18/2022, 2,02/01/2021,2016,04/05/2013 Influenza Adult (Generic) 01/03/2019,12/18/2017 MMR (MMRII) 10/30/1992,11/10/1988 PFIZER COVID-19 (ORIGINAL FORMULATION, PURPLE CAP) mRNA, LNP-S, PF, 30 MCG/0.3 ML DOSE 04/03/2020,03/16/2020 Polio Opv (Generic) 10/30/1992, 8,1987,1987 Tdap (Adacel) 12/25/2018 Family History Medical History Relation Comments Diabetes Father Hypertension Father Diabetes Mother Hypertension Mother Relation Status Comments Father Alive Mother Alive Social History Tobacco Use Types Packs/Day Years Used Date Smoking Tobacco: Never Passive Smoke Exposure: Past Smokeless Tobacco: Never Tobacco Cessation:Counseling Given: No Alcohol Use Standard Drinks/Week Comments Not Currently [...] Sex Assigned at Female 04/01/2018 8:45 PM DIRECTOR CARDIOVASCULAR Legal Sex Female 8:43 PM CDT Gender Identity Female 04/01/2018 8:45 PM DIRECTOR CARDIOVASCULAR Sexual Orientation Straight 03/30/2018 9: 24 AM DIRECTOR CARDIOVASCULAR 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 Not on file Not on file Last Filed Vital Signs Vital Sign Reading Time Taken Comments Blood Pressure 122/76 10/04/2024 2:04 PM CDT Pulse 71 10/04/2024 2:04 PM CDT Temperature 36.4 C (97.6 F) 10/04/2024 2:04 PM CDT Respiratory Rate 18 10/04/2024 2:04 PM CDT Oxygen Saturation 99% 10/04/2024 2:04 PM CDT Inhaled Oxygen Concentration - - Weight 92.4 kg (203 lb 11.2 oz) 10/04/2024 2:04 PM CDT Height 152.4 cm (5') 10/04/2024 2:04 PM CDT Body Mass Index 39.78 10/04/2024 2:04 PM CDT Plan of Treatment Upcoming Encounters Date Type Department Care Team (Late st Contact Info) Description 04/02/2025 12:00 PM DIRECTOR CARDIOVASCULAR Office Visit [facility] Family Medicine - [address], [address] [place] [address] Bartolo VII, Miguel Mayer MD [address] [place] [address], [place] [address] [place] [id number] Health Maintenance Due Date Last Done Comments Cervical Cancer Screening Pap Smear (Age 30 to 64) Every 3 Years 1987 Hepatitis B Vaccines (3 of 3 - 3-dose series) 05/05/1997 02/17/1997, 01/13/1997 Hepatitis C 07/30/2005 Pneumococcal Vaccine: Pediatrics (0 to 5 Years) and At-Risk Patients (6 to 49 Years) (1 of 2 - PCV) 07/30/2006 HPV Vaccines (1 - 3-dose SCDM series) 07/30/2014 Cervical Cancer Screening Pap with HPV Testing (Age 30 to 64) Every 5 Years 07/30/2017 Cervical Cancer Screening with HPV 07/30/2017 COVID-19 Vaccine ( season) 2024 04/03/2020, 03/16/2020 Influenza Adult (#1) 2024 01/08/2024, 12/18/2022, 02/06/2022, Additional history exists Annual Physical 12/27/2024 12/28/2023 DTaP, Tdap and Td Vaccines (6 - Td or Tdap) 12/25/2028 12/25/2018, 10/30/1992, 04/19/1988, Additional history exists PHQ-2 (Physician [place]) Completed 08/29/2024 Hepatitis A Vaccines Aged Out No long er eligible based on patient's age to complete this topic Meningococcal B Vaccine Aged Out No l onger eligible based on patient's age to complete this topic Meningococcal Vaccine Aged Out No brittany misa eligible based on patient's age to complete this topic RSV Immunizations Under 20 Months Aged Out No longer eligible based on patient's age to complete this topic Insurance [place] [employer] Advance Directives * Full Code (Latest Code Status on File) Date Activated Date Inactivated Comments 08/03/2018 6:26 PM 08/05/2018 2:58 PM Care Teams Special Needs Child Caregiver Relationship Specialty Start Date End Date Miguel Pagan MD [address] [place] [address], [address] [address] PCP - General FAMILY PRACTICE 12/28/23 Blanca Martini, mincemeat maker (Ambulatory) CARE MANAGEMENT 04/05/24
--- OUTSIDE RECORDS SUMMARY | 2025-02-22 20:51 | XMS_ITS | Encounter Summary ---
Author Organization [facility] Address [facility] [place] [address] Care Team Providers Care Supervisor [employer] Name Role Phone Alis Ramon MD Primary Care Provider [phone] Non-Staff, Provider Primary Care Provider Yadira Mcfarland VII, Miguel Mayer MD Primary Care Prov ider Blanca Martini RN Unavailable Unavailable Encounter Details Date Type Department Care Team (Late st Contact Info) Description 12/17/2021 mobli Message Enc [facility] Family & Internal Medicine [address] [phone] Otilia, [facility] Provider Due for routine follow up appt Social History Tobacco Use Types Packs/Day Years [...] Sex Assigned at Female 04/01/2018 8:45 PM ALTERATION SPECIALIST Legal Sex Female 8:43 PM CDT Gender Identity Female 04/01/2018 8:45 PM ALTERATION SPECIALIST Sexual Orientation Straight 03/30/2018 9: 24 AM ALTERATION SPECIALIST Occupation Industry Job Start Date Job End [...] st Contact Info) Description 04/02/2025 12:00 PM ALTERATION SPECIALIST Office Visit [facility] [place] [address] [facility], [address] [place] [phone] BartoloMiguel Whittington MD [address], [address] [phone] documented as of this encounter Visit Diagnoses Not on filedocumented in this encounter Additional Health Concerns Infection Onset Date Last Indicated Resolved Time COVID-19 Rule Out 12/30/2021 12/30/2021 12/30/2021 4:59 PM CDT COVID-19 Rule Out 12/30/2021 12/30/2021 12/30/2021 5:04 PM CDT COVID-19 Rule Out 03/29/2024 03/29/2024 03/29/2024 3:26 PM ALTERATION SPECIALIST Assessment Noted Time PHQ-9 Depression Total Score: 0 05/14/19 3:33 PM ALTERATION SPECIALIST documented as of this encounter Care Teams Supervisor [employer] Relationship Specialty [place] [address] [facility]. [address] [place] [id number] PCP - General FAMILY PRACTICE 05/14/21 09/25/23 Non-Staff, Provider PCP - General UNKNOWN PHYSICIAN SPECIALTY 09/26/23 12/27/23 Miguel Pagan MD [address] [place] [id number] PCP - General FAMILY PRACTICE 12/28/23 Blanca Martini RN Care Manager (Ambulatory) CARE MANAGEMENT 04/05/24 documented as of this encounter
[2025-02-22 20:54] LABS: Hematocrit 38.9 % (37.0-47.0); Hemoglobin 13.7 g/dL (12.0-15.0); Immature Granulocyte Percent A 0.3 % (0-0.5); Lymphocytes Absolute Auto 1.97 K/mm3 (0.9-3.2); Mean Corpuscular HGB Conc 35.2 g/dl (32-36); Mean Corpuscular Hemoglobin 29.2 pg (26-34); Mean Corpuscular Volume 82.9 fl (80-100); Nucleated Red Blood Cells Absolute Auto 0.000 K/mm3 (0.0-0.012); Nucleated Red Blood Cells Perc 0.0 % (0.0-0.2); Platelet Count Result 320 k/mm3 (150-375); Red Blood Count 4.69 M/mm3 (4.2-5.4); White Blood Count 6.3 K/mm3 (4.5-10.0)
[2025-02-22 21:00] LABS: Add Urine Microscopic? YES; Appearance Urine Cloudy (Clear); Glucose Urine UA Negative (Negative); Leukocyte Esterase Ur 1+ LEU/UL (Negative); Nitrate Urine Negative (Negative); Non Pathogenic Casts 0-2; Specific Grav Ur 1.019 (1.001-1.035)
[2025-02-22 21:09] LABS: Alanine Aminotransferase 24 U/L (6-35); Albumin Level 4.4 g/dL (3.5-5.1); Alkaline Phosphatase 60 U/L (38-126); Anion Gap 8 mmol/L (4-12); Aspartate Amino Transferase 25 U/L (14-36); Bilirubin,Total 0.3 mg/dL (0.2-1.3); Calcium 9.3 mg/dL (8.4-10.2); Carbon Dioxide 22 mmol/L (22-30); Chloride 105 mmol/L (98-107); Glucose 83 mg/dL (65-110); Potassium 3.2 mmol/L (3.4-5.0); Sodium 135 mmol/L (137-145); Total Protein 7.9 g/dL (6.3-8.2)
[2025-02-22 21:20] LABS: Blood Urea Nitrogen 19 mg/dL (7-17); Estimated CRCL calculation 39 ml/min; Estimated Glomerular Filt Rate 32
--- NOTE | 2025-02-22 21:48 | ED_ITS ---
HPI - Abdominal Pain General Chief Complaint: Abdominal Pain <Summer Marques APRN - Last Filed: 02/23/25 02:12> Stated Complaint: kidney infection <Summer Marques APRN - Last Filed: 02/23/25 02:12> Time Seen by Provider: 02/22/25 20:34 <Summer Marques APRN - Last Filed: 02/23/25 02:12> History of Present Illness HPI narrative: Patient is a 39-year-old female who presents to the ER with back pain, weakness, and abdominal pain. She reports on Monday, 6 days ago patient started experiencing urgency and incomplete emptying. On Monday and of this previous week, 5 days ago, she experienced vomiting and diarrhea. Patient reports over the the weekend she has started experiencing chills, sweats, and significant left upper to mid back pain. She also endorses significant weakness at this time. Patient has an extensive medical history including an acute kidney injury/ kidney failure from naproxen in 2017, asthma, gastric sleeve, COVID neuropathy, kidney stones, and cholecystectomy. At time of examination she denies any shortness of breath, headache, or recent fevers. < Summer Marques APRN - Last Filed: 02/23/25 02:12> Related Data Home Medications: Home Medications ?Medication ?Instructions ?Recorded ?Confirmed ?Last Taken ?Type albuterol sulfate 90 mcg/actuation 2 puff inhalation Q 4-6H PRN 12/19/20 08/24/22 Unknown History aerosol inhaler (Ventolin HFA) Shortness Of Breath Or Wheezing montelukast 10 mg tablet 10 mg PO QPM 08/24/22 Unknown History sertraline 50 mg tablet 50 mg PO DAILY 08/24/2210/09 Unknown History <Summer Marques APRN - Last Filed: 02/23/25 02:12> Allergies/Adverse Reactions: Allergies Allergy/AdvReac Type Severity Reaction Status Date / Time ibuprofen Allergy Severe Other Verified 02/22/25 20:18 naproxen (From Aleve) Allergy Severe Other Verified 02/22/25 20:18 NSAIDS (Non-Steroidal Allergy Severe Other Verified 02/22/25 20:18 Anti-Inflamma peach Allergy Mild Hives Verified 02/22/25 20:18 <Summer Marques APRN - Last Filed: 02/23/25 02:12> Review of Systems 2 Review of Systems: All systems reviewed & are unremarkable except as noted in HPI and below <Summer Marques APRN - Last Filed: 02/23/25 02:12> [facility] Past Medical History Medical History: Medical History Chronic renal insufficiency <Summer Marques APRN - Last Filed: 02/23/25 02:12> Family History Family History: Family History Grandparent Hypertension Cerebrovascular accident Father Family history of diabetes mellitus in first degree relative Other Family history of coronary artery disease Family history of lung cancer <Summer Marques APRN - Last Filed: 02/23/25 02:12> Social History Social History: Social History Smoking status: Never smoker Alcohol intake: never Substance use: never Living arrangements: with family Gender identity (if verbalized by the patient): Female <Summer Marques APRN - Last Filed: 02/23/25 02:12> Exam 2 Narrative: GENERAL: Well appearing, well-nourished, non-toxic, in no acute distress. HEAD: Normocephalic, atraumatic. NECK: Supple. No adenopathy, no masses. RESPIRATORY: Airway patent, respirations nonlabored. Clear to auscultation bilaterally, no rales, rhonchi, wheezing. CARDIOVASCULAR: Mildly tachycardic without murmurs, rubs, or gallops. Peripheral pulses 2+ and equal bilaterally. + L CVA tenderness ABDOMINAL: Soft, Left upper quadrant and left lower quadrant tenderness with palpation, nondistended, no hepatosplenomegaly. Normoactive BS. MUSCULOSKELETAL: Moves all extremities. Strength/ROM intact without gross deformities. SKIN: Warm, dry, normal color. No rashes. NEURO: A&O X3. Speech clear. Cranial nerves II-XII intact. No ataxic movements. PSYCHIATRIC: Appropriate mood and affect. Normal interaction. <Summer Marques, EXCEPTIONAL STUDENT EDUCATION AIDE - Last Filed: 02/23/25 02:12> Course INSURANCE ASSISTANT/PA Physician Supervision This visit was performed by both a physician and an APC. I performed all aspects of the MDM as documented. <Subhash Puente, - Last Filed: 02/23/25 07:20> Vital Signs Vital signs: Vital Signs Temperature 97.9 F 02/22/25 20:00 Pulse Rate 112 H 02/22/25 20:00 Respiratory Rate 15 02/22/25 20:00 Blood Pressure 155/95 H 02/22/25 20:00 Pulse Oximetry 99 02/22/25 20:00 Oxygen Delivery Room Air 02/22/25 20:00 Temperature 97.9 F 02/22/25 20:00 Pulse Rate 80 02/23/25 06:14 Respiratory Rate 13 02/23/25 06:14 Blood Pressure 141/96 H 02/22/25 20:07 Pulse Oximetry 97 02/23/25 06:14 Oxygen Delivery Room Air 02/22/25 20:07 <Summer Marques, EXCEPTIONAL STUDENT EDUCATION AIDE - Last Filed: 02/23/25 02:12> Vital Signs Temperature 97.9 F 02/22/25 20:00 Pulse Rate 112 H 02/22/25 20:00 Respiratory Rate 15 02/22/25 20:00 Blood Pressure 155/95 H 02/22/25 20:00 Pulse Oximetry 99 02/22/25 20:00 Oxygen Delivery Room Air 02/22/25 20:00 Temperature 97.9 F 02/22/25 20:00 Pulse Rate 80 02/23/25 06:14 Respiratory Rate 13 02/23/25 06:14 Blood Pressure 141/96 H 02/22/25 20:07 Pulse Oximetry 97 02/23/25 06:14 Oxygen Delivery Room Air 02/22/25 20:07 <Subhash Puente, - Last Filed: 02/23/25 07:20> MDM MDM Narrative Medical decision making narrative: Patient is a 39-year-old female who presents to the ER with back pain, weakness, and abdominal pain. She reports on Monday, 6 days ago patient started experiencing urgency and incomplete emptying. On Monday and of this previous week, 5 days ago, she experienced vomiting and diarrhea. Patient reports over the the weekend she has started experiencing chills, sweats, and significant left upper to mid back pain. She also endorses significant weakness at this time. Patient has an extensive medical history including an acute kidney injury/ kidney failure from naproxen in 2017, asthma, gastric sleeve, COVID neuropathy, kidney stones, and cholecystectomy. At time of examination she denies any shortness of breath, headache, or recent fevers. * patient reports she is currently at the end of her menstrual period. Labs Ordered:CBC, CMP, lactic acid, D-dimer, PTT, INR, COVID/flu/RSV, lipase Imaging Ordered: CTA chest abdomen pelvis Medications Ordered: 2.6 L normal saline IV bolus, ceftriaxone IV Results: Patient's CT scan indicates no evidence of thoracic aortic aneurysm or dissection. No pulmonary embolism is seen. No significant pericardial a pasty your pneumothorax. No evidence of abdominal aortic aneurysm or dissection. Enlarged fatty liver. Status post cholecystectomy. Unremarkable CT scan appearance noted the appendix. There was a possible uterine pessary present. There is a hiatal hernia. There are postoperative changes involving the stomach. Diagnosis: Pyelonephritis, acute kidney injury MDM: Results of imaging and lab work shared with patient and her family. It was advised patient be admitted to the hospital for further evaluation and treatment. Patient and her family verbalized understanding and are in agreement with plan. Pt is requesting medication to treat her back pain. She is unable to take NSAIDs, so pt is requesting a muscle relaxant. Will provide her with Cyclobenzaprine. 0150- Spoke with Dr. Balderas, hospitalist, who was in agreement with plan for admission. Pt will be admitted to the med/surg floor. She will be continued on IV antibiotics and IV maintenance fluids. <Summer Marques APRN - Last Filed: 02/23/25 02:12> Differential Diagnosis Differential Diagnosis: PE, kidney stone, pyelonephritis <Summer Marques APRN - Last Filed: 02/23/25 02:12> Lab Data [facility] Lab Attestation statement: I personally reviewed the patient's lab results. <Summer Marques APRN - Last Filed: 02/23/25 02:12> Result diagrams: 02/23/25 06:21 02/23/25 06:21 <Summer PachecoHaylee Marques, EXCEPTIONAL STUDENT EDUCATION AIDE - Last Filed: 02/23/25 02:12> Labs: Lab Results 02/22/25 02/22/25 02/22/25 Range/Units 20:46 20:48 21:56 WBC 6.3 (4.5-10.0) K/mm3 RBC 4.69 (4.2-5.4) M/mm3 Hgb 13.7 (12.0-15.0) g/dL Hct 38.9 (37.0-47.0) % MCV 82.9 (80-100) fl MCH 29.2 (26-34) pg MCHC 35.2 (32-36) g/dl RDW 13.0 (11.5-14.5) % Plt Count 320 (150-375) k/mm3 MPV 10.0 (7.4-10.4) fl Immature Gran % (Auto) 0.3 (0-0.5) % Neut % (Auto) 53.5 (45.5-73.1) % Lymph % (Auto) 31.3 (18.3-44.2) % Collin % (Auto) 7.6 (2.6-8.5) % Eos % (Auto) 6.7 H (0-4.4) % Baso % (Auto) 0.6 (0.2-1.2) % Lymph # (Auto) 1.97 (0.9-3.2) K/mm3 Collin # (Auto) 0.5 (0.1-0.6) K/mm3 Eos # (Auto) 0.4 H (0-0.3) K/mm3 Baso # (Auto) 0.0 (0.0-0.1) K/mm3 Abs Immat Gran (auto) 0.02 (0.00-0.031) K/mm3 Absolute Neuts (auto) 3.4 (1.3-6.7) K/mm3 Absolute Nucleated RBC 0.000 (0.0-0.012) K/mm3 Nucleated RBC % 0.0 (0.0-0.2) % PT 13.5 (11.1-14.7) Seconds INR 1.0 APTT 30.9 (22.3-36.8) Seconds D-Dimer 0.42 (<0.48) ug/mL Sodium 135 L (137-145) mmol/L Potassium 3.2 L (3.4-5.0) mmol/L Chloride 105 (98-107) mmol/L Carbon Dioxide 22 (22-30) mmol/L Anion Gap 8 (4-12) mmol/L BUN 19 H (7-17) mg/dL Creatinine 1.77 H (0.7-1.0) mg/dL Estim Creat Clear Calc 39 ml/min Estimated GFR 32 L (59 - ) Glucose 83 (65-110) mg/dL Lactic Acid 0.8 (0.7-2.0) mmol/L Calcium 9.3 (8.4-10.2) mg/dL Total Bilirubin 0.3 (0.2-1.3) mg/dL AST 25 (14-36) U/L ALT 24 (6-35) U/L Alkaline Phosphatase 60 (38-126) U/L Troponin I < 0.012 (0.000-0.034) ng/mL C-Reactive Protein (<1.0) mg/dL Total Protein 7.9 (6.3-8.2) g/dL Albumin 4.4 (3.5-5.1) g/dL Lipase 179 (23-300) U/L Urine Color Yellow (Yellow) Urine Appearance Cloudy H (Clear) Urine pH 5.5 (5.0-9.0) Ur Specific Corbin 1.019 (1.001-1.035) Urine Protein Trace (Negative) mg/dL Urine Glucose (UA) Negative (Negative) mg/dL Urine Ketones Negative (Negative) mg/dL Ur Blood (Man) 1+ H (Negative) Urine Nitrate Negative (Negative) Urine Bilirubin Negative (Negative) Urine Urobilinogen 0.2 (<2.0) mg/dL Leukocyte Esterase Rfl 1+ H (Negative) ANI/UL Urine RBC 6-10 H (0-2) /hpf Urine WBC 11-20 H (0-3) /hpf Ur Squamous Epith Cells Few (Few) /hpf Urine Bacteria 1+ H /hpf Urine Casts 0-2 POC Urine HCG, Qual Negative (Negative) Influenza A (RT-PCR) Negative (Negative) Influenza B (RT-PCR) Negative (Negative) RSV (RT-PCR) Negative (Negative) SARS-CoV-2 RNA (RT-PCR) Negative (Negative) 02/23/25 Range/Units 01:29 WBC (4.5-10.0) K/mm3 RBC (4.2-5.4) M/mm3 Hgb (12.0-15.0) g/dL Hct (37.0-47.0) % MCV (80-100) fl MCH (26-34) pg MCHC (32-36) g/dl RDW (11.5-14.5) % Plt Count (150-375) k/mm3 MPV (7.4-10.4) fl Immature Gran % (Auto) (0-0.5) % Neut % (Auto) (45.5-73.1) % Lymph % (Auto) (18.3-44.2) % Collin % (Auto) (2.6-8.5) % Eos % (Auto) (0-4.4) % Baso % (Auto) (0.2-1.2) % Lymph # (Auto) (0.9-3.2) K/mm3 Collin # (Auto) (0.1-0.6) K/mm3 Eos # (Auto) (0-0.3) K/mm3 Baso # (Auto) (0.0-0.1) K/mm3 Abs Immat Gran (auto) (0.00-0.031) K/mm3 Absolute Neuts (auto) (1.3-6.7) K/mm3 Absolute Nucleated RBC (0.0-0.012) K/mm3 Nucleated RBC % (0.0-0.2) % PT (11.1-14.7) Seconds INR APTT (22.3-36.8) Seconds D-Dimer (<0.48) ug/mL Sodium (137-145) mmol/L Potassium (3.4-5.0) mmol/L Chloride (98-107) mmol/L Carbon Dioxide (22-30) mmol/L Anion Gap (4-12) mmol/L BUN (7-17) mg/dL Creatinine (0.7-1.0) mg/dL Estim Creat Clear Calc ml/min Estimated GFR (59 - ) Glucose (65-110) mg/dL Lactic Acid (0.7-2.0) mmol/L Calcium (8.4-10.2) mg/dL Total Bilirubin (0.2-1.3) mg/dL AST (14-36) U/L ALT (6-35) U/L Alkaline Phosphatase (38-126) U/L Troponin I (0.000-0.034) ng/mL C-Reactive Protein < 0.5 (<1.0) mg/dL Total Protein (6.3-8.2) g/dL Albumin (3.5-5.1) g/dL Lipase (23-300) U/L Urine Color (Yellow) Urine Appearance (Clear) Urine pH (5.0-9.0) Ur Specific Corbin (1.001-1.035) Urine Protein (Negative) mg/dL Urine Glucose (UA) (Negative) mg/dL Urine Ketones (Negative) mg/dL Ur Blood (Man) (Negative) Urine Nitrate (Negative) Urine Bilirubin (Negative) Urine Urobilinogen (<2.0) mg/dL Leukocyte Esterase Rfl (Negative) ANI/UL Urine RBC (0-2) /hpf Urine WBC (0-3) /hpf Ur Squamous Epith Cells (Few) /hpf Urine Bacteria /hpf Urine Casts POC Urine HCG, Qual (Negative) Influenza A (RT-PCR) (Negative) Influenza B (RT-PCR) (Negative) RSV (RT-PCR) (Negative) SARS-CoV-2 RNA (RT-PCR) (Negative) <Summer Marques, EXCEPTIONAL STUDENT EDUCATION AIDE - Last Filed: 02/23/25 02:12> Lab Results 02/22/25 02/22/25 02/22/25 Range/Units 20:46 20:48 21:56 WBC 6.3 (4.5-10.0) K/mm3 RBC 4.69 (4.2-5.4) M/mm3 Hgb 13.7 (12.0-15.0) g/dL Hct 38.9 (37.0-47.0) % MCV 82.9 (80-100) fl MCH 29.2 (26-34) pg MCHC 35.2 (32-36) g/dl RDW 13.0 (11.5-14.5) % Plt Count 320 (150-375) k/mm3 MPV 10.0 (7.4-10.4) fl Immature Gran % (Auto) 0.3 (0-0.5) % Neut % (Auto) 53.5 (45.5-73.1) % Lymph % (Auto) 31.3 (18.3-44.2) % Collin % (Auto) 7.6 (2.6-8.5) % Eos % (Auto) 6.7 H (0-4.4) % Baso % (Auto) 0.6 (0.2-1.2) % Lymph # (Auto) 1.97 (0.9-3.2) K/mm3 Collin # (Auto) 0.5 (0.1-0.6) K/mm3 Eos # (Auto) 0.4 H (0-0.3) K/mm3 Baso # (Auto) 0.0 (0.0-0.1) K/mm3 Abs Immat Gran (auto) 0.02 (0.00-0.031) K/mm3 Absolute Neuts (auto) 3.4 (1.3-6.7) K/mm3 Absolute Nucleated RBC 0.000 (0.0-0.012) K/mm3 Nucleated RBC % 0.0 (0.0-0.2) % PT 13.5 (11.1-14.7) Seconds INR 1.0 APTT 30.9 (22.3-36.8) Seconds D-Dimer 0.42 (<0.48) ug/mL Sodium 135 L (137-145) mmol/L Potassium 3.2 L (3.4-5.0) mmol/L Chloride 105 (98-107) mmol/L Carbon Dioxide 22 (22-30) mmol/L Anion Gap 8 (4-12) mmol/L BUN 19 H (7-17) mg/dL Creatinine 1.77 H (0.7-1.0) mg/dL Estim Creat Clear Calc 39 ml/min Estimated GFR 32 L (59 - ) Glucose 83 (65-110) mg/dL Lactic Acid 0.8 (0.7-2.0) mmol/L Calcium 9.3 (8.4-10.2) mg/dL Total Bilirubin 0.3 (0.2-1.3) mg/dL AST 25 (14-36) U/L ALT 24 (6-35) U/L Alkaline Phosphatase 60 (38-126) U/L Troponin I < 0.012 (0.000-0.034) ng/mL C-Reactive Protein (<1.0) mg/dL Total Protein 7.9 (6.3-8.2) g/dL Albumin 4.4 (3.5-5.1) g/dL Lipase 179 (23-300) U/L Urine Color Yellow (Yellow) Urine Appearance Cloudy H (Clear) Urine pH 5.5 (5.0-9.0) Ur Specific Corbin 1.019 (1.001-1.035) Urine Protein Trace (Negative) mg/dL Urine Glucose (UA) Negative (Negative) mg/dL Urine Ketones Negative (Negative) mg/dL Ur Blood (Man) 1+ H (Negative) Urine Nitrate Negative (Negative) Urine Bilirubin Negative (Negative) Urine Urobilinogen 0.2 (<2.0) mg/dL Leukocyte Esterase Rfl 1+ H (Negative) ANI/UL Urine RBC 6-10 H (0-2) /hpf Urine WBC 11-20 H (0-3) /hpf Ur Squamous Epith Cells Few (Few) /hpf Urine Bacteria 1+ H /hpf Urine Casts 0-2 POC Urine HCG, Qual Negative (Negative) Influenza A (RT-PCR) Negative (Negative) Influenza B (RT-PCR) Negative (Negative) RSV (RT-PCR) Negative (Negative) SARS-CoV-2 RNA (RT-PCR) Negative (Negative) 02/23/25 Range/Units 01:29 WBC (4.5-10.0) K/mm3 RBC (4.2-5.4) M/mm3 Hgb (12.0-15.0) g/dL Hct (37.0-47.0) % MCV (80-100) fl MCH (26-34) pg MCHC (32-36) g/dl RDW (11.5-14.5) % Plt Count (150-375) k/mm3 MPV (7.4-10.4) fl Immature Gran % (Auto) (0-0.5) % Neut % (Auto) (45.5-73.1) % Lymph % (Auto) (18.3-44.2) % Collin % (Auto) (2.6-8.5) % Eos % (Auto) (0-4.4) % Baso % (Auto) (0.2-1.2) % Lymph # (Auto) (0.9-3.2) K/mm3 Collin # (Auto) (0.1-0.6) K/mm3 Eos # (Auto) (0-0.3) K/mm3 Baso # (Auto) (0.0-0.1) K/mm3 Abs Immat Gran (auto) (0.00-0.031) K/mm3 Absolute Neuts (auto) (1.3-6.7) K/mm3 Absolute Nucleated RBC (0.0-0.012) K/mm3 Nucleated RBC % (0.0-0.2) % PT (11.1-14.7) Seconds INR APTT (22.3-36.8) Seconds D-Dimer (<0.48) ug/mL Sodium (137-145) mmol/L Potassium (3.4-5.0) mmol/L Chloride (98-107) mmol/L Carbon Dioxide (22-30) mmol/L Anion Gap (4-12) mmol/L BUN (7-17) mg/dL Creatinine (0.7-1.0) mg/dL Estim Creat Clear Calc ml/min Estimated GFR (59 - ) Glucose (65-110) mg/dL Lactic Acid (0.7-2.0) mmol/L Calcium (8.4-10.2) mg/dL Total Bilirubin (0.2-1.3) mg/dL AST (14-36) U/L ALT (6-35) U/L Alkaline Phosphatase (38-126) U/L Troponin I (0.000-0.034) ng/mL C-Reactive Protein < 0.5 (<1.0) mg/dL Total Protein (6.3-8.2) g/dL Albumin (3.5-5.1) g/dL Lipase (23-300) U/L Urine Color (Yellow) Urine Appearance (Clear) Urine pH (5.0-9.0) Ur Specific Corbin (1.001-1.035) Urine Protein (Negative) mg/dL Urine Glucose (UA) (Negative) mg/dL Urine Ketones (Negative) mg/dL Ur Blood (Man) (Negative) Urine Nitrate (Negative) Urine Bilirubin (Negative) Urine Urobilinogen (<2.0) mg/dL Leukocyte Esterase Rfl (Negative) ANI/UL Urine RBC (0-2) /hpf Urine WBC (0-3) /hpf Ur Squamous Epith Cells (Few) /hpf Urine Bacteria /hpf Urine Casts POC Urine HCG, Qual (Negative) Influenza A (RT-PCR) (Negative) Influenza B (RT-PCR) (Negative) RSV (RT-PCR) (Negative) SARS-CoV-2 RNA (RT-PCR) (Negative) <Subhash Puente DO - Last Filed: 02/23/25 07:20> Imaging Data Attestation: I personally reviewed and interpreted this imaging study as follows: < Summer Marques APRN - Last Filed: 02/23/25 02:12> Radiologist's impression: Patient's CT scan indicates no evidence of thoracic aortic aneurysm or dissection. No pulmonary embolism is seen. No significant pericardial a pasty your pneumothorax. No evidence of abdominal aortic aneurysm or dissection. Enlarged fatty liver. Status post cholecystectomy. Unremarkable CT scan appearance noted the appendix. There was a possible uterine pessary present. There is a hiatal hernia. There are postoperative changes involving the stomach. <Summer Marques APRN - Last Filed: 02/23/25 02:12> Discharge Plan Discharge Clinical Impression: Acute kidney injury, Pyelonephritis <Summer Marques APRN - Last Filed: 02/23/25 02:12> Patient Disposition: Still a Patient <Summer Marques APRN - Last Filed: 02/23/25 02:12> Condition: Stable <Summer Marques APRN - Last Filed: 02/23/25 02:12>
[2025-02-22 22:12] LABS: INR 1.0; Prothrombin Time 13.5 Seconds (11.1-14.7)
[2025-02-22 22:13] LABS: Lipase 179 U/L (23-300); Partial Thromboplastin Time 30.9 Seconds (22.3-36.8)
[2025-02-22 22:25] LABS: Troponin I < 0.012 ng/mL (0.000-0.034)
[2025-02-22 22:37] LABS: Influenza A QL RT-PCR Negative (Negative); Influenza B QL RT-PCR Negative (Negative); RSV RNA, RT-PCR Negative (Negative); SARS-CoV-2 RNA PCR Negative (Negative)
[2025-02-22 23:44] VITALS: PULSE 93; RESP 15; O2SAT 98
[2025-02-23] MEDS: SODIUM CHLORIDE 0.9% IV 1,000 ML 999 ML IV CONT ×2 (01:23→02:49)
[2025-02-23] MEDS: CYCLOBENZAPRINE HCL 10 MG TABLET PO (01:54)
[2025-02-23] MEDS: cefTRIAXone 1 GM in SODIUM CHLORIDE 0.9% IV 50 ML 100 ML IVPB ×2 (02:19→22:02)
[2025-02-23 02:20] LABS: CRP < 0.5 mg/dL (<1.0)
--- NOTE | 2025-02-23 03:57 | PM.IMHP2 ---
H&P: HPI History of Present Illness Date/Time: 02/23/25 03:57 Chief Complaint: Left back pain, lower abdominal pain Narrative: 39-year-old female with PMH prior kidney failure from naproxen use in 2017, gastric sleeve, COVID neuropathy, history of kidney stones, cholecystectomy, asthma, obesity class 2 presents to [facility] ER on 02/22/2025 complaining of back pain, weakness, bilateral lower abdominal pain. Four days prior to admission she experience urinary urgency and incomplete emptying. Then she had 1 bout of vomiting and diarrhea. She had some chills and sweats as well. ER evaluation demonstrates sinus tachycardia resolved after fluids, blood pressure 148/99, afebrile, saturating 100% on room air. WBC 6300, INR 1.0, potassium 3.2, sodium 135, BUN 19, serum creatinine 1.77 within normal creatinine of 1 in 2022, CRP normal, troponin within normal limits, urinalysis 11-20 WBC, bacteria 1+, leukocyte esterase positive. Nitrate negative. Blood and urine cultures obtained. CT chest abdomen pelvis showing enlarged fatty liver, status post cholecystectomy, normal appendix. Final radiology interpretation is pending. Patient received cyclobenzaprine as she was having some muscle spasms in the back in she had symptomatic improvement. Also received 30 cc/kilogram normal saline bolus. Review of Systems Review of Systems: All systems reviewed & are unremarkable except as noted in HPI and below (Subjective) [facility] Past Medical History Medical History Chronic renal insufficiency Family History Family History Grandparent Hypertension Cerebrovascular accident Father Family history of diabetes mellitus in first degree relative Other Family history of coronary artery disease Family history of lung cancer Social History Social History Smoking status: Never smoker Alcohol intake: never Substance use: never Living arrangements: with family Gender identity (if verbalized by the patient): Female Meds Home Medications and Allergies Home Medications ?Medication ?Instructions ?Recorded ?Confirmed ?Type albuterol sulfate 90 mcg/actuation 2 puff inhalation Q4-6H PRN 12/19/20 08/24/22 History aerosol inhaler (Ventolin HFA) Shortness Of Breath Or Wheezing montelukast 10 mg tablet 10 mg PO QPM 08/24/22 08/24/22 History sertraline 50 mg tablet 50 mg PO DAILY 08/24/22 08/24/22 History Allergies Allergy/AdvReac Type Severity Reaction Status Date / Time ibuprofen Allergy Severe Other Verified 02/22/25 20:18 naproxen (From Aleve) Allergy Severe Other Verified 02/22/25 20:18 NSAIDS (Non-Steroidal Allergy Severe Other Verified 02/22/25 20:18 Anti-Inflamma peach Allergy Mild Hives Verified 02/22/25 20:18 Vital Signs Vital Signs - 24 hr 02/22/25 20:00 02/22/25 20:07 02/22/25 23:44 Temperature 97.9 F Pulse Rate 112 H 108 H 93 Respiratory Rate 15 16 15 Blood Pressure 155/95 H 141/96 H Pulse Oximetry 99 98 98 Oxygen Delivery Room Air Room Air Exam Const: General: comfortable and no acute distress Other: A&O x4 HENMT: Mouth: Yes moist mucous membranes Eyes: Pupils: Equal, round and reactive pupils present Neck: Neck: supple Resp: Effort & Inspection: normal respiratory effort Auscultation: clear to auscultation bilaterally Cardio: Rate: regular rate Rhythm: regular rhythm GI: Inspection: non-distended Auscultation: normal bowel sounds Other: Mild tenderness to palpation of bilateral lower abdominal areas and midback just left of the spine. Neuro: Motor exam (neuro): 5/5 motor strength present throughout Extrem: General: no edema Results Labs Labs: Short CBC 02/22/25 Range/Units 20:48 WBC 6.3 (4.5-10.0) K/mm3 Hgb 13.7 (12.0-15.0) g/dL Hct 38.9 (37.0-47.0) % Plt Count 320 (150-375) k/mm3 BMP 02/22/25 20:48 Sodium 135 L Potassium 3.2 L Chloride 105 Carbon Dioxide 22 BUN 19 H Creatinine 1.77 H Glucose 83 Calcium 9.3 Cardiac Enzymes 02/22/25 Range/Units 21:56 Troponin I < 0.012 (0.000-0.034) ng/mL Liver Function 02/22/25 Range/Units 20:48 Total Bilirubin 0.3 (0.2-1.3) mg/dL AST 25 (14-36) U/L ALT 24 (6-35) U/L Alkaline Phosphatase 60 (38-126) U/L Albumin 4.4 (3.5-5.1) g/dL Urine 02/22/25 Range/Units 20:48 Urine Color Yellow (Yellow) Urine Appearance Cloudy H (Clear) Urine pH 5.5 (5.0-9.0) Ur Specific [place] 1.019 (1.001-1.035) Urine Protein Trace (Negative) mg/dL Urine Glucose (UA) Negative (Negative) mg/dL Assessment and Plan Assessment and plan (1) Acute kidney injury: Code(s): N17.9 - Acute kidney failure, unspecified Status: Acute (2) Pyelonephritis: Code(s): N12 - Tubulo-interstitial nephritis, not specified as acute or chronic Status: Acute (3) Complicated UTI (urinary tract infection): Code(s): N39.0 - Urinary tract infection, site not specified Status: Acute Plan Patient presents with cystitis and presumed complicated UTI with tenderness at the flank/left midback. Urine culture pending. Continue ceftriaxone. Replace potassium, recheck along with magnesium. Sodium chloride infusion at 125 cc/hour. Trend renal function. Tylenol, morphine p.r.n.. Patient wishes to be full code. SCDs. Regular diet. Prior Studies I have reviewed the following patient records and this information was taken into consideration when formulating the assessment and plan.: previous labs Time Spent with Patient Time with patient: less than 45 minutes Hospitalist MIPS Advance Care Plan I have confirmed that the patient's Advanced Care Plan is present, code status is documented, or surrogate decision maker is listed in patient medical record.: Yes Medication Reconciliation I have utilized all available resources to obtain, update and review the patients current medications (includes all prescriptions, OTC, herbals, cannabis, and nutritional supplements).: Yes
[2025-02-23] MEDS: POTASSIUM CHLORIDE 20 MEQ ER TABLET PO (04:18)
[2025-02-23] MEDS: SODIUM CHLORIDE 0.9% IV 700 ML 999 ML IV CONT (04:21)
[2025-02-23 06:14] VITALS: PULSE 80; RESP 13; O2SAT 97
[2025-02-23 06:31] LABS: Hematocrit 31.8 % (37.0-47.0); Hemoglobin 10.8 g/dL (12.0-15.0); Immature Granulocyte Percent A 0.2 % (0-0.5); Lymphocytes Absolute Auto 1.57 K/mm3 (0.9-3.2); Mean Corpuscular HGB Conc 34.0 g/dl (32-36); Mean Corpuscular Hemoglobin 29.3 pg (26-34); Mean Corpuscular Volume 86.2 fl (80-100); Nucleated Red Blood Cells Absolute Auto 0.000 K/mm3 (0.0-0.012); Nucleated Red Blood Cells Perc 0.0 % (0.0-0.2); Platelet Count Result 208 k/mm3 (150-375); Red Blood Count 3.69 M/mm3 (4.2-5.4); White Blood Count 4.6 K/mm3 (4.5-10.0)
[2025-02-23 06:58] LABS: Alanine Aminotransferase 28 U/L (6-35); Albumin Level 3.2 g/dL (3.5-5.1); Alkaline Phosphatase 48 U/L (38-126); Anion Gap 3 mmol/L (4-12); Aspartate Amino Transferase 21 U/L (14-36); Bilirubin,Total 0.3 mg/dL (0.2-1.3); Blood Urea Nitrogen 14 mg/dL (7-17); Calcium 7.4 mg/dL (8.4-10.2); Carbon Dioxide 23 mmol/L (22-30); Chloride 111 mmol/L (98-107); Estimated CRCL calculation 44 ml/min; Estimated Glomerular Filt Rate 37; Glucose 82 mg/dL (65-110); Magnesium 1.7 mg/dL (1.6-2.3); Potassium 3.6 mmol/L (3.4-5.0); Sodium 137 mmol/L (137-145); Total Protein 6.0 g/dL (6.3-8.2)
[2025-02-23 07:44] VITALS: BP 119/69; PULSE 80; RESP 16; O2SAT 100
[2025-02-23] MEDS: SODIUM CHLORIDE 0.9% IV 1,000 ML 125 ML IV CONT (07:50)
[2025-02-23 08:31] VITALS: BP 111/69; PULSE 86; RESP 20; O2SAT 99
--- NOTE | 2025-02-23 08:32 | WPCEDHO ---
ED Hand Off Checklist All vitals saved:y IV Site documented:y All med administrations documented:y Triage Note Triage Note patient states she has L sided 02/22/25 20:07 back pain, nausea, vomiting x1 yesterday, weakness, burning with urination. patient hx of acute kidney failure Allergies ibuprofen Allergy (Severe, Verified 02/22/25 20:18) Other KIDNEY FAILURE naproxen (From Aleve) Allergy (Severe, Verified 02/22/25 20:18) Other KIDNEY FAILURE NSAIDS (Non-Steroidal Anti-Inflamma Allergy (Severe, Verified 02/22/25 20:18) Other KIDNEY FAILURE peach Allergy (Mild, Verified 02/22/25 20:18) Hives Current Diagnoses Tubulo-interstitial nephritis, not specified as acute or chronic (02/23/25) Acute kidney failure, unspecified (02/23/25) Urinary tract infection, site not specified (02/23/25) Family History (Last Reviewed 02/22/25 @ 21:54 by Summer Marques, [employer]) Grandparent Hypertension Cerebrovascular accident Father Family history of diabetes mellitus in first degree relative Other Family history of coronary artery disease Family history of lung cancer Active Medications including assessments/comments Sodium Chloride (Normal Saline Iv) 1,000 mls @ 125 mls/hr IV CONT .Q8H DIEGO Last Admin: 02/23/25 07:50 Dose: 125 mls/hr Documented By: LEV Infusion/Titration Document 02/23/25 07:50 LEV (Rec: 02/23/25 07:50 LEV [id number]) Intake IV Site Right Antecubital Container Volume 1,000 Waste Amount 0 Dosing Infusion Rate 125 Cumulative Dose Not Applicable Increase/Decrease Started Elapsed Time Elapsed Time ( 0m minutes) Administered/Completed Medications Discontinued Medications Cyclobenzaprine HCl (Cyclobenzaprine Hcl 10 Mg Tablet) 10 mg PO ONCE ONE Stop: 02/23/25 01:42 Last Admin: 02/23/25 01:54 Dose: 10 mg Documented By: EDILBERTO Ceftriaxone Sodium 1 gm/ (Sodium Chloride) 50 mls @ 100 mls/hr IVPB ONCE STA Stop: 02/23/25 01:32 Last Infusion: 02/23/25 02:52 Dose: Infused Documented By: Admin: 02/23/25 02:19 Dose: 100 mls/hr Documented By: JABARI Sodium Chloride (Normal Saline Iv) 1,000 mls @ 999 mls/hr IV CONT .Q1H1M STA Stop: 02/23/25 02:15 Last Infusion: 02/23/25 02:52 Dose: Infused Documented By: Admin: 02/23/25 01:23 Dose: 999 mls/hr Documented By: EDILBERTO Sodium Chloride (Normal Saline Iv) 1,000 mls @ 999 mls/hr IV CONT .Q1H1M STA Stop: 02/23/25 02:15 Last Infusion: 02/23/25 04:23 Dose: Infused Documented By: Admin: 02/23/25 02:49 Dose: 999 mls/hr Documented By: JABARI Sodium Chloride (Normal Saline Iv) 700 mls @ 999 mls/hr IV CONT .Q43M STA Stop: 02/23/25 01:57 Last Infusion: 02/23/25 06:35 Dose: Infused Documented By: Admin: 02/23/25 04:21 Dose: 999 mls/hr Documented By: EDILBERTO Potassium Chloride (Potassium Chloride 20 Meq Er Tablet) 20 meq PO ONCE ONE Stop: 02/23/25 04:02 Last Admin: 02/23/25 04:18 Dose: 20 meq Documented By: EDILBERTO Interventions/Assessments IV / Saline Lock, Insert Start: 02/22/25 20:02 Freq: STAT Status: Active Protocol: Document 02/22/25 20:46 EDILBERTO (Rec: 02/22/25 20:46 EDILBERTO [id number]) IV Assessment Right Antecubital IV Catheter Access Initiated IV Insertion Date 02/22/25 IV Insertion Time 20:46 Catheter Gauge 18 IV Insertion 1 Attempts Ultrasound Used for No Placement IV Site Assessment WNL IV Care and WNL Maintenance PA: Gastrointestinal Assessment Start: 02/22/25 20:00 Freq: Status: Active Protocol: Document 02/22/25 20:07 EDILBERTO (Rec: 02/22/25 20:14 EDILBERTO [id number]) GI Assessment Gastrointestinal Diarrhea Symptoms Description Soft Pattern Normal Nausea/Vomiting Assessment Nausea Frequency Continuous Emesis Frequency Subsided PA: Genitourinary Assessment Start: 02/22/25 20:07 Freq: Status: Active Protocol: Document 02/22/25 20:07 EDILBERTO (Rec: 02/22/25 20:14 EDILBERTO [id number]) Infection Risk Screen Urinary Devices None Present Prior to Hospital Arrival Assessment Genitourinary Burning,Flank Pain,Frequency Symptoms CVA Tenderness present Genital Discharge Characteristics Amount Small Genital Discharge Red Color Comments currently menstruating Last Vital Signs Temperature 97.9 F 02/22/25 20:00 Pulse Rate 86 02/23/25 08:31 Respiratory Rate 20 02/23/25 08:31 Pulse Oximetry 99 02/23/25 08:31 Blood Pressure 111/69 02/23/25 08:31 Blood Pressure Mean 83 02/23/25 08:31 Blood Pressure Position Supine 02/23/25 08:31 Oxygen Delivery Room Air 02/22/25 20:07 Weight 89 kg 02/22/25 20:07 Last Result - Abnormals Only RBC 3.69 M/mm3 (4.2-5.4) L 02/23/25 06:21 Hgb 10.8 g/dL (12.0-15.0) L 02/23/25 06:21 Hct 31.8 % (37.0-47.0) L 02/23/25 06:21 Eos % (Auto) 7.1 % (0-4.4) H 02/23/25 06:21 Eos # (Auto) 0.4 K/mm3 (0-0.3) H 02/22/25 20:48 Sodium 135 mmol/L (137-145) L 02/22/25 20:48 Potassium 3.2 mmol/L (3.4-5.0) L 02/22/25 20:48 Chloride 111 mmol/L (98-107) H 02/23/25 06:21 Anion Gap 3 mmol/L (4-12) L 02/23/25 06:21 BUN 19 mg/dL (7-17) H 02/22/25 20:48 Creatinine 1.56 mg/dL (0.7-1.0) H 02/23/25 06:21 Estimated GFR 37 (59-) L 02/23/25 06:21 Calcium 7.4 mg/dL (8.4-10.2) L 02/23/25 06:21 Total Protein 6.0 g/dL (6.3-8.2) L 02/23/25 06:21 Albumin 3.2 g/dL (3.5-5.1) L 02/23/25 06:21 Urine Appearance Cloudy (Clear) H 02/22/25 20:48 Ur Blood (Man) 1+ (Negative) H 02/22/25 20:48 Leukocyte Esterase Rfl 1+ ANI/UL (Negative) H 02/22/25 20:48 Urine RBC 6-10 /hpf (0-2) H 02/22/25 20:48 Urine WBC 11-20 /hpf (0-3) H 02/22/25 20:48 Urine Bacteria 1+ /hpf H 02/22/25 20:48 Most Recent Suicide Severity Rating Suicide Severity Rating NO RISK INDICATED 02/22/25 20:07
[2025-02-23 10:21] VITALS: BMI 39.9
[2025-02-23] MEDS: ACETAMINOPHEN 325 MG TABLET 650 MG PO (10:24)
--- NOTE | 2025-02-23 10:29 | ADMGEN ---
This patient, Nava Pulido, was admitted to 3 [facility] Surg Room 309-01. Patient/family oriented to hospital policies and general routines including ID bracelet, bed and alarms, visiting hours, pain management, procedures, bathroom and other care routines, personal items, smoking policy, room service/diet, and visiting hours. Information on how to activate the Rapid Response Team has been discussed. Patient/Family are encouraged to report perceived risks to care and to ask questions if they do not understand what they are told or what they should do.
--- NOTE | 2025-02-23 10:37 | P.PN_ITS ---
Progress Note: A&P Assessment and Plan (1) Acute kidney injury: Code(s): N17.9 - Acute kidney failure, unspecified Status: Acute Assessment and Plan: Likely due to acute infection/dehydration. * Creatinine 1.77 on admission, improved to 1.56 today. Baseline is around 1.0 * Continue with gentle IV fluid rehydration * Avoid any nephrotoxic agent * Monitor BMP closely * She has history of acute kidney injury in 2017 from NSAID use (2) Complicated UTI (urinary tract infection): Code(s): N39.0 - Urinary tract infection, site not specified Status: Acute Assessment and Plan: UA abnormal and patient is symptomatic * Urine culture is pending. Blood cultures pending * WBC is within normal limits. Remains afebrile. * Continue IV ceftriaxone while awaiting culture results * Initial concern for pyelo given left back pain, however CT of abdomen/pelvis does not demonstrate any signs of ascending infection (3) Right nephrolithiasis: Code(s): N20.0 - Calculus of kidney Status: Acute Assessment and Plan: 3 mm nonobstructing stone in right kidney * Unlikely to be the source of back pain * Can observe as an outpatient (4) Hypokalemia: Code(s): E87.6 - Hypokalemia Status: Acute Assessment and Plan: Potassium 3.2 on admission, likely due to poor p.o. intake in setting of acute illness * Received 20 mEq p.o. KCl on admission * Potassium stable at this time, 3.6 * Continue to monitor BMP Subjective Date/time seen: 02/23/25 10:37 Interval history: Nava is starting to feel a bit better. Dysuria has resolved. This time she denies dysuria or hematuria. She does endorse some mild nausea but denies vomiting, chills. Denies any fever. Denies abdominal pain. Was previously feeling was significant sweats, states this has resolved. She denies dizziness, lightheadedness, weakness, shortness of breath, cough, chest pain, palpitations. Still having some left upper back pain, though notes this is improving slightly. Review of Systems Review of Systems: All systems reviewed & are unremarkable except as noted in HPI and below Exam Narrative: General: well nourished, well developed, no acute distress Neuro: awake, alert and oriented x4 HEENT: normocephalic, atraumatic CV: regular rate, rhythm Respiratory: lungs clear to auscultation, normal respiratory effort Abd: soft, nondistended, nontender, normoactive bowel sounds, no CVA tenderness Extremities: no erythema or swelling Psych: appropriate mood and affect Objective Data Vital Signs Vital Signs: Vital Signs - 24 hr 02/22/25 20:00 02/22/25 20:07 02/22/25 23:44 Temperature 97.9 F Pulse Rate 112 H 108 H 93 Respiratory Rate 15 16 15 Blood Pressure 155/95 H 141/96 H Pulse Oximetry 99 98 98 Oxygen Delivery Room Air Room Air 02/23/25 06:14 02/23/25 07:44 02/23/25 08:31 Temperature Pulse Rate 80 80 86 Respiratory Rate 13 16 20 Blood Pressure 119/69 111/69 Pulse Oximetry 97 100 99 Oxygen Delivery Intake/Output Intake/Output: Intake & Output 02/20/25 02/21/25 02/22/25 02/23/25 23:59 23:59 23:59 23:59 Intake Total 2750 Output Total 300 Balance 2450 Meds/Results Medications: Active Medications Generic Name Dose Route Start Last Admin Trade Name Freq PRN Reason Stop Dose Admin Acetaminophen 650 mg 02/23/25 01:55 02/23/25 10:24 Acetaminophen 325 Mg Tablet PO 650 mg Q4H PRN Administration Mild Pain (1-3) or Fever Sodium Chloride 1,000 mls @ 125 mls/hr 02/23/25 01:55 02/23/25 07:50 Normal Saline Iv IV CONT 125 mls/hr .Q8H DIEGO Administration Ceftriaxone Sodium 1 gm/ 50 mls @ 100 mls/hr 02/23/25 23:00 Sodium Chloride IVPB Q24H DIEGO Morphine Sulfate 2 mg 02/23/25 01:55 Morphine Sulfate (*Crx) 4 Mg/Ml Inj IV PUSH Q2H PRN Pain Rated 7-10 Ondansetron HCl 4 mg 02/23/25 01:55 Ondansetron Inj 4 Mg/2 Ml Vial IV PUSH Q4H PRN Nausea Radiology Results: ITS Impressions Chest/Abdomen/Pelvis CTA 02/23/25 08:53 IMPRESSION: 1. No significant arterial occlusive disease. 2. Small sliding hiatal hernia. Labs Labs: Laboratory Results - last 24 hr 02/22/25 02/22/2525 20:46 20:48 21:56 WBC 6.3 RBC 4.69 Hgb 13.7 Hct 38.9 MCV 82.9 MCH 29.2 MCHC 35.2 RDW 13.0 Plt Count 320 MPV 10.0 Immature Gran % (Auto) 0.3 Neut % (Auto) 53.5 Lymph % (Auto) 31.3 [place] % (Auto) 7.6 Eos % (Auto) 6.7 H Baso % (Auto) 0.6 Lymph # (Auto) 1.97 [place] # (Auto) 0.5 Eos # (Auto) 0.4 H Baso # (Auto) 0.0 Abs Immat Gran (auto) 0.02 Absolute Neuts (auto) 3.4 Absolute Nucleated RBC 0.000 Nucleated RBC % 0.0 PT 13.5 INR 1.0 APTT 30.9 D-Dimer 0.42 Sodium 135 L Potassium 3.2 L Chloride 105 Carbon Dioxide 22 Anion Gap 8 BUN 19 H Creatinine 1.77 H Estim Creat Clear Calc 39 Estimated GFR 32 L Glucose 83 Lactic Acid 0.8 Calcium 9.3 Magnesium Total Bilirubin 0.3 AST 25 ALT 24 Alkaline Phosphatase 60 Troponin I < 0.012 C-Reactive Protein Total Protein 7.9 Albumin 4.4 Lipase 179 Urine Color Yellow Urine Appearance Cloudy H Urine pH 5.5 Ur Specific [place] 1.019 Urine Protein Trace Urine Glucose (UA) Negative Urine Ketones Negative Ur Blood (Man) 1+ H Urine Nitrate Negative Urine Bilirubin Negative Urine Urobilinogen 0.2 Leukocyte Esterase Rfl 1+ H Urine RBC 6-10 H Urine WBC 11-20 H Ur Squamous Epith Cells Few Urine Bacteria 1+ H Urine Casts 0-2 POC Urine HCG, Qual Negative Influenza A (RT-PCR) Negative Influenza B (RT-PCR) Negative RSV (RT-PCR) Negative SARS-CoV-2 RNA (RT-PCR) Negative 02/23/25 02/23/25 01:29 06:21 WBC 4.6 RBC 3.69 L Hgb 10.8 L Hct 31.8 L MCV 86.2 MCH 29.3 MCHC 34.0 RDW 13.2 Plt Count 208 MPV 10.0 Immature Gran % (Auto) 0.2 Neut % (Auto) 50.3 Lymph % (Auto) 33.8 [place] % (Auto) 8.0 Eos % (Auto) 7.1 H Baso % (Auto) 0.6 Lymph # (Auto) 1.57 [place] # (Auto) 0.4 Eos # (Auto) 0.3 Baso # (Auto) 0.0 Abs Immat Gran (auto) 0.01 Absolute Neuts (auto) 2.3 Absolute Nucleated RBC 0.000 Nucleated RBC % 0.0 PT INR APTT D-Dimer Sodium 137 Potassium 3.6 Chloride 111 H Carbon Dioxide 23 Anion Gap 3 L BUN 14 D Creatinine 1.56 H Estim Creat Clear Calc 44 Estimated GFR 37 L Glucose 82 Lactic Acid Calcium 7.4 L Magnesium 1.7 Total Bilirubin 0.3 AST 21 ALT 28 Alkaline Phosphatase 48 Troponin I C-Reactive Protein < 0.5 Total Protein 6.0 L Albumin 3.2 L Lipase Urine Color Urine Appearance Urine pH Ur Specific [place] Urine Protein Urine Glucose (UA) Urine Ketones Ur Blood (Man) Urine Nitrate Urine Bilirubin Urine Urobilinogen Leukocyte Esterase Rfl Urine RBC Urine WBC Ur Squamous Epith Cells Urine Bacteria Urine Casts POC Urine HCG, Qual Influenza A (RT-PCR) Influenza B (RT-PCR) RSV (RT-PCR) SARS-CoV-2 RNA (RT-PCR) Quality VTE Prophylaxis VTE prophylaxis: mechanical ordered
[2025-02-23] MEDS: CITALOPRAM HYDROBROMIDE 20 MG TABLET 40 MG PO (12:36)
[2025-02-23 13:55] VITALS: BP 123/80; PULSE 97; RESP 19; TEMP 36.1; O2SAT 99
[2025-02-23] MEDS: SODIUM CHLORIDE 0.9% IV 1,000 ML 100 ML IV CONT (15:40)
[2025-02-23] MEDS: CALCIUM CARBONATE (TUMS) 500 MG (200 MG ELEMENTAL) PO (18:18)
[2025-02-23 20:35] VITALS: BP 127/82; PULSE 91; RESP 18; TEMP 36.6; O2SAT 99
[2025-02-23] MEDS: GABAPENTIN 300 MG CAPSULE PO (22:02)
[2025-02-24] MEDS: SODIUM CHLORIDE 0.9% IV 1,000 ML 100 ML IV CONT (02:17)
[2025-02-24 05:12] VITALS: BP 130/82; PULSE 71; RESP 20; TEMP 36.7; O2SAT 100
[2025-02-24 06:13] LABS: Hematocrit 31.6 % (37.0-47.0); Hemoglobin 10.6 g/dL (12.0-15.0); Mean Corpuscular HGB Conc 33.5 g/dl (32-36); Mean Corpuscular Hemoglobin 29.1 pg (26-34); Mean Corpuscular Volume 86.8 fl (80-100); Platelet Count Result 210 k/mm3 (150-375); Red Blood Count 3.64 M/mm3 (4.2-5.4); White Blood Count 4.1 K/mm3 (4.5-10.0)
[2025-02-24 07:17] LABS: Anion Gap 4 mmol/L (4-12); Blood Urea Nitrogen 7 mg/dL (7-17); Calcium 7.8 mg/dL (8.4-10.2); Carbon Dioxide 21 mmol/L (22-30); Chloride 113 mmol/L (98-107); Estimated CRCL calculation 54 ml/min; Estimated Glomerular Filt Rate 46; Glucose 85 mg/dL (65-110); Potassium 3.2 mmol/L (3.4-5.0); Sodium 138 mmol/L (137-145)
[2025-02-24 08:00] VITALS: O2SAT 100
[2025-02-24] MEDS: PANTOPRAZOLE 40 MG TABLET PO (08:38)
[2025-02-24] MEDS: CITALOPRAM HYDROBROMIDE 20 MG TABLET 40 MG PO (08:38)
[2025-02-24] MEDS: CALCIUM CARBONATE (TUMS) 500 MG (200 MG ELEMENTAL) PO (10:02)
[2025-02-24] MEDS: POTASSIUM CHLORIDE 20 MEQ PACKET (FOR LIQUID) 40 MEQ PO (12:39)
--- NOTE | 2025-02-24 13:38 | P.DS_ITS ---
DS: Admitting Diagnosis Discharge Date 02/24/2025 Admitting Diagnosis UTI DS: Discharge Diagnosis Discharge Diagnosis (1) Acute kidney injury: Code(s): N17.9 - Acute kidney failure, unspecified Status: Acute (2) Complicated UTI (urinary tract infection): Code(s): N39.0 - Urinary tract infection, site not specified Status: Acute (3) Right nephrolithiasis: Code(s): N20.0 - Calculus of kidney Status: Acute (4) Hypokalemia: Code(s): E87.6 - Hypokalemia Status: Acute DS: Summary Hospital Course Hospital Course: This is a 39-year-old female who presents to the ER with back pain weakness and abdominal pain. She reported urinary symptoms associated chills sweating and left upper to mid back pain. He had extensive medical history including LIBBY from naproxen 2016, asthma gastric sleeve COVID neuropathy kidney stones and cholecystectomy. ER evaluation demonstrated sinus tachycardia which resolved with fluids blood pressure 148/99 afebrile saturating 100% on room air. WBC 6.3 INR 1 potassium 3.2 sodium 135 BUN 19 creatinine 1.7 with normal creatinine of 1 in 2022. CRP normal troponin within normal limits urinalysis 11-20 WBC bacteria 1+ leukocyte esterase positive. Nitrate negative. Blood and urine culture were obtained. CT chest abdomen pelvis showed enlarged fatty liver status post cholecystectomy normal appendix. Patient received IV normal saline fluid bolus LIBBY continue to resolve. Patient was started on IV ceftriaxone. WBC count is within normal limit. Noted right nephrolithiasis was with 3 mm nonobstructing stone in right kidney. Hypokalemia was treated with replacement during the hospital stay. Blood culture remains negative to date. Urine culture was pending at the time of discharge. Clinically improved with ceftriaxone. Will switch to oral antibiotics for discharge. switch tolevoflxoacin for 5 more days at discharge. Time Spent with Patient Time attestation: Total time spent providing and/or coordinating discharge services: 40 minutes Exam Narrative: General: well nourished, well developed, no acute distress Neuro: awake, alert and oriented x4 HEENT: normocephalic, atraumatic CV: regular rate, rhythm Respiratory: lungs clear to auscultation, normal respiratory effort Abd: soft, nondistended, nontender, normoactive bowel sounds, no CVA tenderness Extremities: no erythema or swelling Psych: appropriate mood and affect DS: Data Data Completed and Pending Labs on day of discharge: Labs from last 24 hours 02/24/25 05:36 WBC 4.1 L RBC 3.64 L Hgb 10.6 L Hct 31.6 L MCV 86.8 MCH 29.1 MCHC 33.5 RDW 13.2 Plt Count 210 MPV 10.6 H Sodium 138 Potassium 3.2 L Chloride 113 H Carbon Dioxide 21 L Anion Gap 4 BUN 7 D Creatinine 1.31 H Estim Creat Clear Calc 54 Estimated GFR 46 L Glucose 85 Calcium 7.8 L Imaging Radiologist's impression: ITS Impressions Chest/Abdomen/Pelvis CTA 02/23/25 08:53 IMPRESSION: 1. No significant arterial occlusive disease. 2. Small sliding hiatal hernia. Discharge Plan Discharge Attending physician on discharge: Elder Santiago Discharging Clinician: Elder Santiago Anticipated Discharge Date/Time: 02/24/25 13:44 Patient Disposition: Home Activity: as tolerated Diet: regular Patient Instructions: Antibiotic Form Patient Language: Barbadian Stand Alone Forms: General Discharge Information Follow-up/Referrals: Bartolo,Jose Ramon Vasquez MD [Primary Care Provider, Unknown] - 1 Week Discharge Medications: New ondansetron HCl 4 mg tablet 4 mg PO Q8H PRN (Reason: nausea and vomiting) Qty: 20 0RF levofloxacin 750 mg tablet 750 mg PO HS Qty: 5 0RF Continued gabapentin 300 mg capsule 300 mg PO HS trazodone 100 mg tablet 200 mg PO HS methylphenidate HCl 27 mg tablet extended release 24hr 27 mg PO PRN PRN (Reason: adhd) citalopram 40 mg tablet 40 mg PO DAILY omeprazole 20 mg capsule,delayed release(DR/EC) 40 mg PO DAILY Date of admission: 02/23/25 01:55 Primary Care Provider: MaciejJose Ramon Admitting Provider: Della Balderas Attending physician on admission: Della Balderas Condition: Stable
[2025-02-24 14:00] VITALS: BP 125/78; PULSE 83; RESP 18; TEMP 36.1; O2SAT 99
== END 2025-02-24 15:22 | disposition home or self-care (01) ==
LOC: ANHED 02-23 01:55 → ANH3MEDSUR 02-23 14:09
PROVIDERS: Physician Assistant; Student in an Organized Health Care Education/Training Program; Admitting Provider General Practice; Emergency Provider Registered Nurse; PCP Family Medicine; Visit Provider Internal Medicine
DX: N17.9 Acute kidney failure, unspecified (principal); N12 Tubulo-interstitial nephritis, not specified as acute or chronic; N39.0 Urinary tract infection, site not specified; N20.0 Calculus of kidney; E87.6 Hypokalemia; J45.909 Unspecified asthma, uncomplicated; Z98.84 Bariatric surgery status; Z20.822 Contact with and (suspected) exposure to COVID-19
CPT/HCPCS: 36415; 71275; 74174; 80048; 80053; 81001; 81025; 83605; 83690; 83735; 84484; 85025; 85027; 85380; 85610; 85730; 86140; 87040; 87086; 87637; 96361; 96365; 96366; 99285; A9270; G0378; J0696; J7030; Q9967